=== PATIENT | male | born 1960 | race Caucasian/White ===

== ENCOUNTER 2016-09-16 20:41 | Emergency (ER) | payer BC ==
--- NOTE | 2016-09-16 20:56 | Emergency Department Record ---
History of Present Illness - General Chief Complaint: Back Pain/Injury Stated Complaint: BACK PAIN Time Seen by Provider: 09/16/16 20:52 Source: Patient Mode of Arrival: Ambulatory Limitations: No limitations - History of Present Illness Initial Comments: 56 yo male presents with right lower back pain. The pain started about two days ago at night. The pain has gradually worsened. He has some pain in the right leg. No hematuria. No fever. No trauma. No recent fever or illness. No urinary incontinence. He has had kidney stones prior but this feels different than stones in the past. MD Complaint: Back pain -: Days(s) Place: Home Radiation: Right leg Severity: Moderate Quality: Aching Consistency: Constant Improves With: Immobilization Worsens With: Walking Context: History of kidney stones Associated Symptoms: Denies other symptoms - Related Data Home Medications Medication Instructions Recorded Confirmed Last Taken Clopidogrel Bisulfate [Clopidogrel] 1 tab PO DAILY 11/07/13 09/16/16 1 Day Ago Isosorbide Mononitrate [Imdur] 30 mg PO DAILY 11/07/13 09/16/16 1 Day Ago Metoprolol Succinate [Toprol Xl] 12.5 mg PO DAILY 11/07/13 09/16/16 1 Day Ago Omeprazole 1 tab PO DAILY 11/07/13 09/16/16 1 Day Ago Simvastatin 1 tab PO DAILY 11/07/13 09/16/16 1 Day Ago Fexofenadine HCl 180 mg PO DAILY 01/01/14 09/16/16 1 Day Ago Montelukast Sodium [Singulair] 10 mg PO DAILY 01/01/14 09/16/16 1 Day Ago Multivitamin [Multi-Vitamin Daily] 1 each PO DAILY 01/01/14 09/16/16 1 Day Ago Aspirin 81 mg PO DAILY 05/16/14 09/16/16 1 Day Ago Beclomethasone Dipropionate [Qvar] 2 puff IH DAILY 10/27/15 09/16/16 1 Day Ago Acetaminophen with Codeine 1 tab PO Q6H PRN 09/16/16 09/16/16 Unknown [Acetaminophen-Cod #3 Tablet] Meloxicam [Meloxicam] 7.5 mg PO BID 09/16/16 09/16/16 Unknown Previous Rx's Medication Instructions Recorded Diazepam [Valium] 5 mg PO Q8H #12 tab 09/16/16 Hydrocodone/Acetaminophen [[place] 1 tab PO Q8H PRN #12 tab 09/16/16 5mg/325mg] Allergies Allergy/AdvReac Type Severity Reaction Status Date / Time erythromycin base Allergy Intermediate RASH Unverified 10/29/15 13:10 [ERYTHROMYCIN BASE] Penicillins [PENICILLINS] Allergy Intermediate RASH Unverified 10/29/15 13:10 Review of Systems Constitutional: Denies: Chills, Fever, Weakness Eyes: Denies: Eye discharge, Eye pain, Photophobia ENT: Denies: Congestion, Throat pain Respiratory: Denies: Cough Cardiovascular: Denies: Chest pain, Palpitations, Syncope Endocrine: Denies: Fatigue Gastrointestinal: Denies: Abdominal pain, Diarrhea, Nausea, Vomiting Genitourinary: Reports: Dysuria, Frequency. Denies: Hematuria Musculoskeletal: Reports: Back pain, Neck pain. Denies: Arthralgia Skin: Denies: Bruising, Change in color, Rash Neurological: Denies: Headache, Weakness Psychiatric: Denies: Anxiety Hematological/Lymphatic: Denies: Blood Clots, Easy bleeding, Easy bruising, Swollen glands Past Medical History - SOCIAL HISTORY Smoking Status: Former smoker - RESPIRATORY Hx Respiratory Disorders: Yes Hx Asthma: Yes Hx Bronchitis: Yes Hx Pneumonia: Yes - CARDIOVASCULAR Hx Cardio Disorders: Yes Hx Cardiac Cath: Yes (2010) Hx Chest Pain: Yes Hx Hypertension: Yes Hx Irregular Heartbeat: Yes Comment:: hyperlipidemia - NEURO Hx Neuro Disorders: No Comment:: blurry vision with this episode of CP and before card cath - GI Hx GI Disorders: Yes Hx Reflux: Yes - Hx Genitourinary Disorders: Yes Hx Kidney Stones: Yes Hx Prostate Problems: Yes Comment:: Infection Resolved Apr 2015 - ENDOCRINE Hx Endocrine Disorders: No Hx Diabetes: No Hx Thyroid Disease: No - MUSCULOSKELETAL Hx Musculoskeletal Disorders: Yes Hx Arthritis: Yes Hx Back Injury: Yes - PSYCH Hx Psych Problems: No - HEMATOLOGY/ONCOLOGY Hx Hematology/Oncology Disorders: No Hx Blood Transfusions: No Family Medical History Hx Cancer: Mother Hx Depression: Mother Hx Diabetes: Father, Mother Hx Heart Disease: Father, Mother Physical Exam - General General Appearance: Alert, Oriented x3, Cooperative, No acute distress Limitations: No limitations - Head Head exam: Normal inspection - Eye Eye exam: Normal appearance, PERRL. negative: Conjunctival injection, Periorbital swelling - ENT ENT exam: Normal exam Ear exam: Normal external inspection Nasal Exam: Normal inspection Mouth exam: Normal external inspection Teeth exam: Normal inspection Throat exam: Normal inspection - Neck Neck exam: Normal inspection, Full ROM. negative: Tenderness - Respiratory Respiratory exam: Normal lung sounds bilaterally. negative: Respiratory distress, Rhonchi, Stridor, Wheezes - Cardiovascular Cardiovascular Exam: Regular rate, Normal rhythm, Normal heart sounds - GI/Abdominal GI/Abdominal exam: Soft. negative: Distended, Tenderness - Rectal Rectal exam: Deferred - exam: Deferred - Extremities Extremities exam: Normal inspection, Full ROM, Normal capillary refill. negative: Calf tenderness, Pedal edema, Tenderness - Back Back exam: Reports: Normal inspection, CVA tenderness (R), Full ROM, Muscle spasm, Paraspinal tenderness (left lower), Tenderness. Denies: CVA tenderness ( L), Rash noted, Vertebral tenderness - Neurological Neurological exam: Alert, Normal gait, Oriented X3, Other (negative straight leg raise). negative: Altered, Motor sensory deficit - Psychiatric Psychiatric exam: Normal affect, Normal mood - Skin Skin exam: Dry, Intact, Normal color, Warm Course - Reevaluation(s) Reevaluation #1: The UA is negative He had a CT in 05/07 that was negative for stones This is likely musculoskeletal in nature DC with supportive treatment and recommendation for follow up and reasons to return to the ER 09/16/16 21:32 Disposition Disposition: Discharge Clinical Impression: Lumbar pain Qualifiers: Chronicity: acute Back pain laterality: right Sciatica presence: with sciatica Sciatica laterality: sciatica of right side Qualified Code(s): M54.41 - Lumbago with sciatica, right side Disposition: Home, Self-Care Condition: (1) Good Instructions: Low Back Strain (ED) Additional Instructions: Call your doctor for close follow this week Return if worse, fever, blood in the urine or any concerns Prescriptions: Hydrocodone/Acetaminophen [[place] 5mg/325mg] 1 tab PO Q8H PRN #12 tab PRN Reason: Pain - General Diazepam [Valium] 5 mg PO Q8H #12 tab Forms: Patient Portal Access Time of Disposition: 21:33
[2016-09-16] MEDS ORDERED: HYDROCODONE/APAP 5/325MG TABLET PO ONE (21:04)
[2016-09-16] MEDS ORDERED: DIAZEPAM 5 MG TABLET PO ONE (21:04)
[2016-09-16 21:19] LABS: URINE APPEARANCE CLEAR; URINE BILIRUBIN NEGATIVE (NEGATIVE); URINE BLOOD TRACE-I (NEGATIVE); URINE COLOR YELLOW; URINE GLUCOSE (UA) NEGATIVE (NEGATIVE); URINE KETONE NEGATIVE (NEGATIVE); URINE LEUKOCYTE ESTERASE NEGATIVE (NEGATIVE); URINE NITRITE NEGATIVE (NEGATIVE); URINE PROTEIN NEGATIVE (NEGATIVE); URINE RBC 0 - 2 (NONE SEEN); URINE UROBILINOGEN 0.2 E.U./dL (0.20 - 1.00); URINE WBC 0 - 2 (0-2/hpf)
[2016-09-16 21:20] LABS: URINE BACTERIA NONE SEEN; URINE EPITHELIAL CELLS 0 - 2 (FEW)
== END 2016-09-16 22:22 | disposition home or self-care (01) ==
LOC: ER 20:41
DX: M54.41 Lumbago with sciatica, right side (principal); Z87.442 Personal history of urinary calculi
CPT/HCPCS: 81001; 99283

== ENCOUNTER 2016-09-24 12:53 | Emergency (ER) | payer BC ==
--- NOTE | 2016-09-24 14:28 | Emergency Department Record ---
History of Present Illness - General Chief Complaint: Back Pain/Injury Stated Complaint: LOW BACK PAIN Time Seen by Provider: 09/24/16 13:09 Source: Patient, RN notes reviewed - History of Present Illness Initial Comments: right lower back pain twisting in bed when it started and radiates into her leg.right MD Complaint: Back pain Onset/Timin -: Week(s) Similar Symptoms Previously: Yes Radiation: Left leg, Right leg Severity: Moderate Severity scale (1-10): 8 Quality: Aching Consistency: Constant Improves With: Immobilization Worsens With: Movement, Walking Context: Unknown Associated Symptoms: Denies other symptoms Treatments Prior to Arrival: Prescription analgesics - Related Data Home Medications Medication Instructions Recorded Confirmed Last Taken Clopidogrel Bisulfate [Clopidogrel] 1 tab PO DAILY 11/07/13 09/24/16 09/24/16 Isosorbide Mononitrate [Imdur] 30 mg PO DAILY 11/07/13 09/24/16 09/24/16 Metoprolol Succinate [Toprol Xl] 12.5 mg PO DAILY 11/07/13 09/24/16 09/24/16 Omeprazole 1 tab PO DAILY 11/07/13 09/24/16 09/24/16 Simvastatin 1 tab PO DAILY 11/07/13 09/24/16 09/24/16 Fexofenadine HCl 180 mg PO DAILY 01/01/14 09/24/16 09/24/16 Montelukast Sodium [Singulair] 10 mg PO DAILY 01/01/14 09/24/16 09/24/16 Multivitamin [Multi-Vitamin Daily] 1 each PO DAILY 01/01/14 09/24/16 09/24/16 Aspirin 81 mg PO DAILY 05/16/14 09/24/16 09/24/16 Beclomethasone Dipropionate [Qvar] 2 puff IH DAILY 10/27/15 09/24/16 09/24/16 Acetaminophen with Codeine 1 tab PO Q6H PRN 09/16/16 09/24/16 09/24/16 [Acetaminophen-Cod #3 Tablet] Meloxicam [Meloxicam] 7.5 mg PO BID 09/16/16 09/24/16 09/24/16 Previous Rx's Medication Instructions Recorded Diazepam [Valium] 5 mg PO Q8H #12 tab 09/16/16 Allergies Allergy/AdvReac Type Severity Reaction Status Date / Time erythromycin base Allergy Intermediate RASH Verified 09/24/16 12:56 [ERYTHROMYCIN BASE] Penicillins [PENICILLINS] Allergy Intermediate RASH Verified 09/24/16 12:56 Travel Screening - Travel/Exposure Within Last 30 Days Have you traveled within the last 30 days?: No - Travel/Exposure Within Last Year Have you traveled outside the [place] in the last year?: No - Additonal Travel Details Have you been exposed to anyone with a communicable illness?: No - Travel Symptoms Symptom Screening: None Review of Systems Reviewed: No additional complaints except as noted below Constitutional: Reports: As per HPI. Denies: Chills, Fever, Malaise, Night sweats, Weakness, Weight change Eyes: Reports: As per HPI. Denies: Eye discharge, Eye pain, Photophobia, Vision change ENT: Reports: As per HPI. Denies: Congestion, Dental pain, Ear pain, Epistaxis , Hearing loss, Throat pain Respiratory: Reports: As per HPI. Denies: Cough, Dyspnea, Hemoptysis, Stridor, Wheezes Cardiovascular: Reports: As per HPI. Denies: Arrhythmia, Chest pain, Dyspnea on exertion, Edema, Murmurs, Orthopnea, Palpitations, Paroxysmal nocturnal dyspnea, Rheumatic Fever, Syncope Endocrine: Reports: As per HPI. Denies: Fatigue, Heat or cold intolerance, Polydipsia, Polyuria Gastrointestinal: Reports: As per HPI. Denies: Abdominal pain, Constipation, Diarrhea, Hematemesis, Hematochezia, Melena, Nausea, Vomiting Genitourinary: Reports: As per HPI. Denies: Dysuria, Frequency, Hematuria, Incontinence, Retention, Testicular pain, Testicular mass, Urgency Musculoskeletal: Reports: As per HPI. Denies: Arthralgia, Back pain, Gout, Joint swelling, Myalgia, Neck pain Skin: Reports: As per HPI. Denies: Bruising, Change in color, Change in hair/ nails, Lesions, Pruritus, Rash Neurological: Reports: As per HPI. Denies: Abnormal gait, Confusion, Headache, Numbness, Paresthesias, Seizure, Tingling, Tremors, Vertigo, Weakness Psychiatric: Reports: As per HPI. Denies: Anxiety, Auditory hallucinations, Depression, Homicidal thoughts, Suicidal thoughts, Visual hallucinations Hematological/Lymphatic: Reports: As per HPI. Denies: Anemia, Blood Clots, Easy bleeding, Easy bruising, Swollen glands Past Medical History - SOCIAL HISTORY Smoking Status: Former smoker Alcohol Use: None Drug Use: None - RESPIRATORY Hx Respiratory Disorders: Yes Hx Asthma: Yes Hx Bronchitis: Yes Hx Pneumonia: Yes - CARDIOVASCULAR Hx Cardio Disorders: Yes Hx Cardiac Cath: Yes (2010) Hx Chest Pain: Yes Hx Hypertension: Yes Hx Irregular Heartbeat: Yes Comment:: hyperlipidemia - NEURO Hx Neuro Disorders: No Comment:: blurry vision with this episode of CP and before card cath - GI Hx GI Disorders: Yes Hx Reflux: Yes - Hx Genitourinary Disorders: Yes Hx Kidney Stones: Yes Hx Prostate Problems: Yes Comment:: Infection Resolved Apr 2015 - ENDOCRINE Hx Endocrine Disorders: No Hx Diabetes: No Hx Thyroid Disease: No - MUSCULOSKELETAL Hx Musculoskeletal Disorders: Yes Hx Arthritis: Yes Hx Back Injury: Yes - PSYCH Hx Psych Problems: No - HEMATOLOGY/ONCOLOGY Hx Hematology/Oncology Disorders: No Hx Blood Transfusions: No Family Medical History Any Significant Family History?: Yes Hx Cancer: Mother Hx Depression: Mother Hx Diabetes: Father, Mother Hx Heart Disease: Father, Mother Physical Exam - General General Appearance: Alert, Oriented x3, Cooperative, No acute distress - Head Head exam: Normal inspection - Eye Eye exam: Normal appearance, PERRL Pupils: Normal accommodation - ENT ENT exam: Normal exam, Mucous membranes moist, Normal external ear exam, Normal orophraynx, TM's normal bilaterally Ear exam: Normal external inspection. negative: External canal tenderness Nasal Exam: Normal inspection. negative: Discharge, Sinus tenderness Mouth exam: Normal external inspection, Tongue normal Teeth exam: Normal inspection. negative: Dental caries Throat exam: Normal inspection. negative: Tonsillar erythema, Tonsillar exudate - Neck Neck exam: Normal inspection, Full ROM. negative: Tenderness - Respiratory Respiratory exam: Normal lung sounds bilaterally. negative: Respiratory distress - Cardiovascular Cardiovascular Exam: Regular rate, Normal rhythm, Normal heart sounds - GI/Abdominal GI/Abdominal exam: Soft, Normal bowel sounds. negative: Tenderness - Rectal Rectal exam: Deferred - exam: Deferred - Extremities Extremities exam: Normal inspection, Full ROM, Normal capillary refill. negative: Tenderness - Back Back exam: Reports: Normal inspection, Full ROM, Tenderness (bilateral back pain worse on the right and reproducible with palpation and motion). Denies: Muscle spasm, Rash noted - Neurological Neurological exam: Alert, Normal gait, Oriented X3, Reflexes normal - Psychiatric Psychiatric exam: Normal affect, Normal mood - Skin Skin exam: Dry, Intact, Normal color, Warm Course Vital Signs 09/24/16 12:59 Temperature 98.4 F Pulse Rate 60 Respiratory 18 Rate Blood Pressure 124/88 Pulse Ox 95 Disposition Clinical Impression: Strain of Lumbar Region Lumbar pain Qualifiers: Chronicity: acute Back pain laterality: right Sciatica presence: with sciatica Sciatica laterality: sciatica of right side Qualified Code(s): M54.41 - Lumbago with sciatica, right side Instructions: Low Back Strain (ED) Forms: Patient Portal Access Time of Disposition: 14:30
--- NOTE | 2016-09-24 14:35 | Emergency Department Record ---
History of Present Illness - General Chief Complaint: Back Pain/Injury Stated Complaint: LOW BACK PAIN Time Seen by Provider: 09/24/16 13:09 Source: Patient, RN notes reviewed - History of Present Illness Onset/Timin -: Week(s) Similar Symptoms Previously: Yes Radiation: Left leg, Right leg Severity: Moderate Severity scale (1-10): 8 Quality: Aching Consistency: Constant Improves With: Immobilization Worsens With: Movement, Walking Context: Unknown Associated Symptoms: Denies other symptoms Treatments Prior to Arrival: Prescription analgesics - Related Data Home Medications Medication Instructions Recorded Confirmed Last Taken Clopidogrel Bisulfate [Clopidogrel] 1 tab PO DAILY 11/07/13 09/24/16 09/24/16 Isosorbide Mononitrate [Imdur] 30 mg PO DAILY 11/07/13 09/24/16 09/24/16 Metoprolol Succinate [Toprol Xl] 12.5 mg PO DAILY 11/07/13 09/24/16 09/24/16 Omeprazole 1 tab PO DAILY 11/07/13 09/24/16 09/24/16 Simvastatin 1 tab PO DAILY 11/07/13 09/24/16 09/24/16 Fexofenadine HCl 180 mg PO DAILY 01/01/14 09/24/16 09/24/16 Montelukast Sodium [Singulair] 10 mg PO DAILY 01/01/14 09/24/16 09/24/16 Multivitamin [Multi-Vitamin Daily] 1 each PO DAILY 01/01/14 09/24/16 09/24/16 Aspirin 81 mg PO DAILY 05/16/14 09/24/16 09/24/16 Beclomethasone Dipropionate [Qvar] 2 puff IH DAILY 10/27/15 09/24/16 09/24/16 Acetaminophen with Codeine 1 tab PO Q6H PRN 09/16/16 09/24/16 09/24/16 [Acetaminophen-Cod #3 Tablet] Meloxicam [Meloxicam] 7.5 mg PO BID 09/16/16 09/24/16 09/24/16 Previous Rx's Medication Instructions Recorded Diazepam [Valium] 5 mg PO Q8H #12 tab 09/16/16 Cyclobenzaprine HCl [Flexeril] 10 mg PO TID #30 tablet 09/24/16 Hydrocodone/Acetaminophen [[place] 1 tab PO Q6H PRN #14 tab 09/24/16 5mg/325mg] Naproxen [Naprosyn] 500 mg PO Q12H #30 tab. 09/24/16 Allergies Allergy/AdvReac Type Severity Reaction Status Date / Time erythromycin base Allergy Intermediate RASH Verified 09/24/16 12:56 [ERYTHROMYCIN BASE] Penicillins [PENICILLINS] Allergy Intermediate RASH Verified 09/24/16 12:56 Travel Screening - Travel/Exposure Within Last 30 Days Have you traveled within the last 30 days?: No - Travel/Exposure Within Last Year Have you traveled outside the [place] in the last year?: No - Additonal Travel Details Have you been exposed to anyone with a communicable illness?: No - Travel Symptoms Symptom Screening: None Review of Systems Constitutional: Reports: As per HPI. Denies: Chills, Fever, Malaise, Night sweats, Weakness, Weight change Eyes: Reports: As per HPI. Denies: Eye discharge, Eye pain, Photophobia, Vision change ENT: Reports: As per HPI. Denies: Congestion, Dental pain, Ear pain, Epistaxis , Hearing loss, Throat pain Respiratory: Reports: As per HPI. Denies: Cough, Dyspnea, Hemoptysis, Stridor, Wheezes Cardiovascular: Reports: As per HPI. Denies: Arrhythmia, Chest pain, Dyspnea on exertion, Edema, Murmurs, Orthopnea, Palpitations, Paroxysmal nocturnal dyspnea, Rheumatic Fever, Syncope Endocrine: Reports: As per HPI. Denies: Fatigue, Heat or cold intolerance, Polydipsia, Polyuria Gastrointestinal: Reports: As per HPI. Denies: Abdominal pain, Constipation, Diarrhea, Hematemesis, Hematochezia, Melena, Nausea, Vomiting Genitourinary: Reports: As per HPI. Denies: Dysuria, Frequency, Hematuria, Incontinence, Retention, Testicular pain, Testicular mass, Urgency Musculoskeletal: Reports: As per HPI. Denies: Arthralgia, Back pain, Gout, Joint swelling, Myalgia, Neck pain Skin: Reports: As per HPI. Denies: Bruising, Change in color, Change in hair/ nails, Lesions, Pruritus, Rash Neurological: Reports: As per HPI. Denies: Abnormal gait, Confusion, Headache, Numbness, Paresthesias, Seizure, Tingling, Tremors, Vertigo, Weakness Psychiatric: Reports: As per HPI. Denies: Anxiety, Auditory hallucinations, Depression, Homicidal thoughts, Suicidal thoughts, Visual hallucinations Hematological/Lymphatic: Reports: As per HPI. Denies: Anemia, Blood Clots, Easy bleeding, Easy bruising, Swollen glands Past Medical History - SOCIAL HISTORY Smoking Status: Former smoker Alcohol Use: None Drug Use: None - RESPIRATORY Hx Respiratory Disorders: Yes Hx Asthma: Yes Hx Bronchitis: Yes Hx Pneumonia: Yes - CARDIOVASCULAR Hx Cardio Disorders: Yes Hx Cardiac Cath: Yes (2010) Hx Chest Pain: Yes Hx Hypertension: Yes Hx Irregular Heartbeat: Yes Comment:: hyperlipidemia - NEURO Hx Neuro Disorders: No Comment:: blurry vision with this episode of CP and before card cath - GI Hx GI Disorders: Yes Hx Reflux: Yes - Hx Genitourinary Disorders: Yes Hx Kidney Stones: Yes Hx Prostate Problems: Yes Comment:: Infection Resolved Apr 2015 - ENDOCRINE Hx Endocrine Disorders: No Hx Diabetes: No Hx Thyroid Disease: No - MUSCULOSKELETAL Hx Musculoskeletal Disorders: Yes Hx Arthritis: Yes Hx Back Injury: Yes - PSYCH Hx Psych Problems: No - HEMATOLOGY/ONCOLOGY Hx Hematology/Oncology Disorders: No Hx Blood Transfusions: No Family Medical History Any Significant Family History?: Yes Hx Cancer: Mother Hx Depression: Mother Hx Diabetes: Father, Mother Hx Heart Disease: Father, Mother Course Vital Signs 09/24/16 12:59 Temperature 98.4 F Pulse Rate 60 Respiratory 18 Rate Blood Pressure 124/88 Pulse Ox 95 Disposition Clinical Impression: Strain of lumbar spine Lumbar pain Qualifiers: Chronicity: acute Back pain laterality: right Sciatica presence: with sciatica Sciatica laterality: sciatica of right side Qualified Code(s): M54.41 - Lumbago with sciatica, right side Disposition: Home, Self-Care Instructions: Low Back Strain (ED) Prescriptions: Cyclobenzaprine HCl [Flexeril] 10 mg PO TID #30 tablet Naproxen [Naprosyn] 500 mg PO Q12H #30 tab. Hydrocodone/Acetaminophen [[place] 5mg/325mg] 1 tab PO Q6H PRN #14 tab PRN Reason: Pain - General Forms: Patient Portal Access Time of Disposition: 14:35
[2016-09-24] MEDS: KETOROLAC 60 MG/2 ML VIAL IM STA (14:42)
== END 2016-09-24 15:12 | disposition home or self-care (01) ==
LOC: ER 12:53
DX: S39.012A Strain of muscle, fascia and tendon of lower back, initial encounter (principal); M54.41 Lumbago with sciatica, right side; X50.1XXA Overexertion from prolonged static or awkward postures, initial encounter
CPT/HCPCS: 96372; 99283; J1885

== ENCOUNTER 2016-10-05 11:59 | Emergency (ER) | payer BC ==
[2016-10-05] MEDS ORDERED: 0.9 % SODIUM CHLORIDE 1000ML 1,000 ML IV SCH (12:30)
--- NOTE | 2016-10-05 12:32 | Emergency Department Record ---
History of Present Illness - General Chief Complaint: Dizziness Stated Complaint: LIGHT HEADED/NOT FEELING GOOD Time Seen by Provider: 10/05/16 12:13 Source: Patient Mode of Arrival: Ambulatory Limitations: No limitations - History of Present Illness Initial Comments: 56 yo male presents to ED with a CC of feeling lightheaded and dizzy, reports feeling very fatigued as well. Patient denies fevers, chills, cough, or recent illness. Patient does report feeling "all swelled up" since his neck surgery 1.5 years ago, believes today's symptoms are related to his "swelling". Patient denies any focal weakness or pain symptoms. MD Complaint: Dizziness, Lightheadedness Onset/Timin -: Hour(s) Timing: Awoke with symptoms Description: Lightheadedness History of Same: No Severity: Moderate Worsens With: Other Associated Symptoms: Cough - [place] Coma Scale Eye Response: (4) Open spontaneously Motor Response: (6) Obeys commands Verbal Response: (5) Oriented [place] Total: 15 - Related Data Home Medications Medication Instructions Recorded Confirmed Last Taken Clopidogrel Bisulfate [Clopidogrel] 1 tab PO DAILY 11/07/13 10/05/16 10/04/16 Isosorbide Mononitrate [Imdur] 30 mg PO DAILY 11/07/13 10/05/16 10/04/16 Metoprolol Succinate [Toprol Xl] 12.5 mg PO DAILY 11/07/13 10/05/16 10/04/16 Omeprazole 1 tab PO DAILY 11/07/13 10/05/16 10/04/16 Simvastatin 1 tab PO DAILY 11/07/13 10/05/16 10/04/16 Fexofenadine HCl 180 mg PO DAILY 01/01/14 10/05/16 10/04/16 Montelukast Sodium [Singulair] 10 mg PO DAILY 01/01/14 10/05/16 10/04/16 Multivitamin [Multi-Vitamin Daily] 1 each PO DAILY 01/01/14 10/05/16 10/04/16 Aspirin 81 mg PO DAILY 05/16/14 10/05/16 10/04/16 Beclomethasone Dipropionate [Qvar] 2 puff IH DAILY 10/27/15 10/05/16 10/04/16 Acetaminophen with Codeine 1 tab PO Q6H PRN 09/16/16 10/05/16 10/04/16 [Acetaminophen-Cod #3 Tablet] Meloxicam [Meloxicam] 7.5 mg PO BID 09/16/16 10/05/16 10/04/16 Previous Rx's Medication Instructions Recorded Diazepam [Valium] 5 mg PO Q8H #12 tab 09/16/16 Cyclobenzaprine HCl [Flexeril] 10 mg PO TID #30 tablet 09/24/16 Hydrocodone/Acetaminophen [Viola 1 tab PO Q6H PRN #14 tab 09/24/16 5mg/325mg] Naproxen [Naprosyn] 500 mg PO Q12H #30 tab. 09/24/16 Allergies Allergy/AdvReac Type Severity Reaction Status Date / Time erythromycin base Allergy Intermediate RASH Verified 10/05/16 12:10 [ERYTHROMYCIN BASE] Penicillins [PENICILLINS] Allergy Intermediate RASH Verified 10/05/16 12:10 Travel Screening - Travel/Exposure Within Last 30 Days Have you traveled within the last 30 days?: No - Travel/Exposure Within Last Year Have you traveled outside the [place] in the last year?: No - Additonal Travel Details Have you been exposed to anyone with a communicable illness?: No - Travel Symptoms Symptom Screening: None Review of Systems Constitutional: Denies: Chills, Fever, Malaise, Night sweats Eyes: Denies: Eye discharge, Eye pain ENT: Denies: Congestion, Ear pain Respiratory: Denies: Cough, Dyspnea Cardiovascular: Denies: Chest pain, Dyspnea on exertion Endocrine: Reports: Fatigue. Denies: Heat or cold intolerance Gastrointestinal: Denies: Abdominal pain, Nausea, Vomiting Genitourinary: Denies: Hematuria, Incontinence, Retention, Testicular pain Musculoskeletal: Denies: Arthralgia, Back pain, Gout, Joint swelling Skin: Denies: Bruising, Change in color Neurological: Denies: Abnormal gait, Confusion, Headache, Seizure Psychiatric: Denies: Anxiety Hematological/Lymphatic: Denies: Anemia, Blood Clots Past Medical History - SOCIAL HISTORY Smoking Status: Former smoker Alcohol Use: None Drug Use: None - RESPIRATORY Hx Respiratory Disorders: Yes Hx Asthma: Yes Hx Bronchitis: Yes Hx Pneumonia: Yes - CARDIOVASCULAR Hx Cardio Disorders: Yes Hx Cardiac Cath: Yes (2010) Hx Chest Pain: Yes Hx Hypertension: Yes Hx Irregular Heartbeat: Yes Comment:: hyperlipidemia - NEURO Hx Neuro Disorders: No Comment:: blurry vision with this episode of CP and before card cath - GI Hx GI Disorders: Yes Hx Reflux: Yes - Hx Genitourinary Disorders: Yes Hx Kidney Stones: Yes Hx Prostate Problems: Yes Comment:: Infection Resolved Apr 2015 - ENDOCRINE Hx Endocrine Disorders: No Hx Diabetes: No Hx Thyroid Disease: No - MUSCULOSKELETAL Hx Musculoskeletal Disorders: Yes Hx Arthritis: Yes Hx Back Injury: Yes - PSYCH Hx Psych Problems: No - HEMATOLOGY/ONCOLOGY Hx Hematology/Oncology Disorders: No Hx Blood Transfusions: No Family Medical History Any Significant Family History?: Yes Hx Cancer: Mother Hx Depression: Mother Hx Diabetes: Father, Mother Hx Heart Disease: Father, Mother Physical Exam - General General Appearance: Alert, Oriented x3, Cooperative, No acute distress Limitations: No limitations - Head Head exam: Atraumatic, Normocephalic, Normal inspection Head exam detail: negative: Abrasion, Contusion, Dc's sign, General tenderness, Hematoma, Laceration - Eye Eye exam: Normal appearance. negative: Conjunctival injection, Periorbital swelling, Periorbital tenderness, Scleral icterus - ENT Ear exam: negative: Auricular hematoma, Auricular trauma Nasal Exam: negative: Active bleeding, Discharge, Dried blood, Foreign body Mouth exam: negative: Drooling, Laceration, Muffled voice, Tongue elevation - Neck Neck exam: Normal inspection. negative: Meningismus, Tenderness - Respiratory Respiratory exam: Normal lung sounds bilaterally. negative: Rales, Respiratory distress, Rhonchi, Stridor - Cardiovascular Cardiovascular Exam: Regular rate, Normal rhythm, Normal heart sounds - GI/Abdominal GI/Abdominal exam: Soft. negative: Rebound, Rigid, Tenderness - Rectal Rectal exam: Deferred - exam: Deferred - Extremities Extremities exam: Normal inspection. negative: Calf tenderness, Pedal edema, Tenderness - Back Back exam: Denies: CVA tenderness (R), CVA tenderness (L) - Neurological Neurological exam: Alert, Normal gait, Oriented X3 - Psychiatric Psychiatric exam: Normal affect, Normal mood - Skin Skin exam: Normal color. negative: Abrasion Type of lesion: negative: abrasion Course Vital Signs 10/05/16 12:13 Temperature 97.6 F Pulse Rate 67 Respiratory 20 Rate Blood Pressure 143/91 Pulse Ox 94 L - Reevaluation(s) Reevaluation #1: 10/05/16 12:29 EKG: NSR 59 Normal axis Normal intervals No acute ST-T wave changes Reevaluation #2: 10/05/16 13:24 Labs reviewed and are grossly unremarkable for an acute process. Patient was updated on all results, has ambulated to the bathroom with steady gait, is well appearing, and stable for discharge at this time. Medical Decision Making - Lab Data Result diagrams: 10/05/16 13:06 10/05/16 13:06 Disposition Disposition: Discharge Clinical Impression: Fatigue Qualifiers: Fatigue type: unspecified Qualified Code(s): R53.83 - Other fatigue Disposition: Home, Self-Care Condition: (2) Stable Instructions: Dizziness (ED) Additional Instructions: Return to ED if your symptoms worsen or if you have any concerns. Follow-up with your family doctor in 3-5 days as directed. Forms: Patient Portal Access Time of Disposition: 13:24
[2016-10-05 13:11] LABS: GRAN % 59.5 % (47-80); HEMOGLOBIN 15.1 gm/dl (14.0-18.0); LYMPH % 25.1 % (16-45); MEAN CELL VOLUME 91.3 fl (81-97); MEAN CORPUSCULAR HEMOGLOBIN 30.6 pg (27-33); MEAN CORPUSCULAR HGB CONC 33.6 g/dl (32-36); MEAN PLATELET VOLUME 9.4 fl (7.4-10.4); MONO % 10.4 % (0-9); PLATELET COUNT 285 K/uL (130-400); RED BLOOD COUNT 4.93 M/uL (4.40-5.70); RED CELL DISTRIBUTION WIDTH 13.1 % (11.5-14.5); WHITE BLOOD COUNT W/O DIFF 7.2 K/uL (4.2-12.2)
[2016-10-05 13:22] LABS: ALB/GLOB RATIO 1.6 (1.1-1.8); ALBUMIN 4.4 gm/dL (3.5-5.0); ALKALINE PHOSPHATASE 71 U/L (38-126); ALT/SGPT 47 U/L (21-72); ANION GAP 9.7 (7-16); AST/SGOT 34 U/L (17-59); BILIRUBIN,TOTAL 0.93 mg/dL (0.2-1.3); BLOOD UREA NITROGEN 16 mg/dL (9-20); CARBON DIOXIDE 26.3 mmol/L (22-30); CREATININE 0.9 mg/dL (0.66-1.25); EST GLOMERULAR FILTRATION RATE > 60 ml/min; GLUCOSE,RANDOM 92 mg/dL (70-110); TOTAL PROTEIN 7.2 gm/dL (6.3-8.2)
[2016-10-05 13:23] LABS: INFLUENZA A NEGATIVE (NEGATIVE); INFLUENZA B NEGATIVE (NEGATIVE)
== END 2016-10-05 13:37 | disposition home or self-care (01) ==
LOC: ER 11:59
DX: R53.83 Other fatigue (principal); R42 Dizziness and giddiness; R05 Cough; I10 Essential (primary) hypertension; F17.210 Nicotine dependence, cigarettes, uncomplicated
CPT/HCPCS: 80053; 85025; 87400; 93005; 93010; 99284

== ENCOUNTER 2016-12-02 08:32 | Emergency (ER) | payer BC ==
[2016-12-02] MEDS ORDERED: ONDANSETRON 4 MG ODT TABLET SL ONE (08:55)
--- NOTE | 2016-12-02 09:03 | Emergency Department Record ---
History of Present Illness - General Chief Complaint: Abdominal Pain Stated Complaint: ABD PAIN Time Seen by Provider: 12/02/16 08:44 Source: Patient Mode of Arrival: Ambulatory Limitations: No limitations - History of Present Illness Initial Comments: The patient is here due to a one hour hx of abdominal cramping, bloating, and nausea. The cramping is mainly in the lower abdomen. The onset was fairly sudden. He has had no vomiting or diarrhea but feels that he might at any time. He also is complaining of swelling all over his body for many months. The patient has had these similar issues in the past which he attributes to having metal placed in his neck for spine surgery and now he feels he is allergic to it. He usually in the past has developed vomiting and diarrhea which does relieve his symptoms but today he came in right when it started. The patient denies any dysuria, fever, chills, CP, SOB or LIBORIO. He recently was in the [facility] for a ST and received a Zpak. The patient denies any hx of intraabdominal surgeries. MD Complaint: Abdominal pain Onset/Timin -: Hour(s) Location: Diffuse Radiation: Back Migration to: No migration Severity: Moderate Quality: Aching, Cramping Consistency: Constant Improves With: Nothing Worsens With: Nothing Associated Symptoms: Nausea - Related Data Home Medications Medication Instructions Recorded Confirmed Last Taken Clopidogrel Bisulfate [Clopidogrel] 1 tab PO DAILY 11/07/13 12/02/16 10/04/16 Isosorbide Mononitrate [Imdur] 30 mg PO DAILY 11/07/13 12/02/16 10/04/16 Metoprolol Succinate [Toprol Xl] 12.5 mg PO DAILY 11/07/13 12/02/16 10/04/16 Omeprazole 1 tab PO DAILY 11/07/13 12/02/16 10/04/16 Simvastatin 1 tab PO DAILY 11/07/13 12/02/16 10/04/16 Fexofenadine HCl 180 mg PO DAILY 01/01/14 12/02/16 10/04/16 Montelukast Sodium [Singulair] 10 mg PO DAILY 01/01/14 12/02/16 10/04/16 Multivitamin [Multi-Vitamin Daily] 1 each PO DAILY 01/01/14 12/02/16 10/04/16 Aspirin 81 mg PO DAILY 05/16/14 12/02/16 10/04/16 Beclomethasone Dipropionate [Qvar] 2 puff IH DAILY 10/27/15 12/02/16 10/04/16 Acetaminophen with Codeine 1 tab PO Q6H PRN 09/16/16 12/02/16 10/04/16 [Acetaminophen-Cod #3 Tablet] Allergies Allergy/AdvReac Type Severity Reaction Status Date / Time erythromycin base Allergy Intermediate RASH Unverified 11/14/16 11:55 [ERYTHROMYCIN BASE] Penicillins [PENICILLINS] Allergy Intermediate RASH Unverified 11/14/16 11:55 Travel Screening - Travel/Exposure Within Last 30 Days Have you traveled within the last 30 days?: No Review of Systems Constitutional: Denies: Chills, Fever Eyes: Denies: Eye discharge ENT: Denies: Congestion Respiratory: Denies: Cough, Dyspnea Cardiovascular: Denies: Arrhythmia, Chest pain Past Medical History - SOCIAL HISTORY Smoking Status: Former smoker Alcohol Use: None Drug Use: None - RESPIRATORY Hx Respiratory Disorders: Yes Hx Asthma: Yes Hx Bronchitis: Yes Hx Pneumonia: Yes - CARDIOVASCULAR Hx Cardio Disorders: Yes Hx Cardiac Cath: Yes (2010) Hx Chest Pain: Yes Hx Hypertension: Yes Hx Irregular Heartbeat: Yes Comment:: hyperlipidemia - NEURO Hx Neuro Disorders: No Comment:: blurry vision with this episode of CP and before card cath - GI Hx GI Disorders: Yes Hx Reflux: Yes - Hx Genitourinary Disorders: Yes Hx Kidney Stones: Yes Hx Prostate Problems: Yes Comment:: Infection Resolved Apr 2015 - ENDOCRINE Hx Endocrine Disorders: No Hx Diabetes: No Hx Thyroid Disease: No - MUSCULOSKELETAL Hx Musculoskeletal Disorders: Yes Hx Arthritis: Yes Hx Back Injury: Yes - PSYCH Hx Psych Problems: No - HEMATOLOGY/ONCOLOGY Hx Hematology/Oncology Disorders: No Hx Blood Transfusions: No Family Medical History Any Significant Family History?: Yes Hx Cancer: Mother Hx Depression: Mother Hx Diabetes: Father, Mother Hx Heart Disease: Father, Mother Physical Exam - General General Appearance: Alert, Oriented x3, Cooperative, No acute distress - Head Head exam: Atraumatic, Normocephalic, Normal inspection - Eye Eye exam: Normal appearance, PERRL - Neck Neck exam: Normal inspection, Full ROM. negative: Tenderness - Respiratory Respiratory exam: Normal lung sounds bilaterally. negative: Respiratory distress - Cardiovascular Cardiovascular Exam: Regular rate, Normal rhythm, Normal heart sounds - GI/Abdominal GI/Abdominal exam: Soft, Normal bowel sounds. negative: Guarding, Rebound, Rigid, Tenderness - exam: Normal inspection - Extremities Extremities exam: Normal inspection, Full ROM, Normal capillary refill. negative: Calf tenderness, Pedal edema, Tenderness - Neurological Neurological exam: Alert, Normal gait, Oriented X3. negative: Abnormal gait, Altered, Motor sensory deficit - Psychiatric Psychiatric exam: Anxious Course Vital Signs 12/02/16 08:33 Temperature 97.5 F L Pulse Rate 86 Respiratory 20 Rate Blood Pressure 135/108 Pulse Ox 97 - Reevaluation(s) Reevaluation #1: The patient is doing better. He denies any nausea and states his cramping is improved but still minimally present. We will give the patient a Toradol shot which has worked well in the past per the patient. 12/02/16 09:50 Reevaluation #2: The patient is doing better at this time. He denies any CP, SOB, or significant pain or bloating at this time. On exam his abdomen is very soft and nontender in all 4 quads. He is still feeling mild discomfort but has had no vomiting or diarrhea here in the ER. I did explain to him the need to use the Zofran for nausea and to F/U with his PCP for recheck later this week. 12/02/16 10:17 Medical Decision Making - Data Complexity MDM Data: Labs Ordered and/or Reviewed - Lab Data Result diagrams: 12/02/16 09:03 12/02/16 09:03 Disposition Disposition: Discharge Clinical Impression: Abdominal cramping Disposition: Home, Self-Care Condition: (1) Good Instructions: Abdominal Pain (ED) Additional Instructions: Please only take in clear liquids for 6 hours then slowly advance your diet. Use the Zofran as needed. Please see your PCP later this week for recheck and return to the ER in 8-10 hours for recheck if not better at which time we may possibly order a CT of your abdomen. Forms: Patient Portal Access Time of Disposition: 10:21
[2016-12-02 09:16] LABS: BASO % 0.8 % (0-6); EOS % 4.7 % (0-6); GRAN % 59.5 % (47-80); HEMATOCRIT 46.4 % (42.0-52.0); HEMOGLOBIN 15.4 gm/dl (14.0-18.0); LYMPH % 28.2 % (16-45); MEAN CELL VOLUME 91.2 fl (81-97); MEAN CORPUSCULAR HEMOGLOBIN 30.3 pg (27-33); MEAN CORPUSCULAR HGB CONC 33.2 g/dl (32-36); MEAN PLATELET VOLUME 9.7 fl (7.4-10.4); MONO % 6.8 % (0-9); PLATELET COUNT 293 K/uL (130-400); RED BLOOD COUNT 5.09 M/uL (4.40-5.70); RED CELL DISTRIBUTION WIDTH 12.7 % (11.5-14.5); WHITE BLOOD COUNT W/O DIFF 8.7 K/uL (4.2-12.2)
[2016-12-02 09:29] LABS: ALBUMIN 4.7 gm/dL (3.5-5.0); ALKALINE PHOSPHATASE 81 U/L (38-126); ALT/SGPT 38 U/L (21-72); AST/SGOT 26 U/L (17-59); BILIRUBIN,TOTAL 0.75 mg/dL (0.2-1.3); BLOOD UREA NITROGEN 14 mg/dL (9-20); EST GLOMERULAR FILTRATION RATE > 60 ml/min; GLUCOSE,RANDOM 123 mg/dL (70-110); LIPASE 95 U/L (23-300); TOTAL PROTEIN 7.8 gm/dL (6.3-8.2)
[2016-12-02 09:32] LABS: URINE APPEARANCE CLEAR; URINE BILIRUBIN NEGATIVE (NEGATIVE); URINE BLOOD NEGATIVE (NEGATIVE); URINE COLOR YELLOW; URINE GLUCOSE (UA) NEGATIVE (NEGATIVE); URINE KETONE NEGATIVE (NEGATIVE); URINE LEUKOCYTE ESTERASE NEGATIVE (NEGATIVE); URINE NITRITE NEGATIVE (NEGATIVE); URINE PROTEIN NEGATIVE (NEGATIVE); URINE UROBILINOGEN 0.2 E.U./dL (0.20 - 1.00)
[2016-12-02] MEDS ORDERED: KETOROLAC 30 MG/ML VIAL IM ONE (09:48)
[2016-12-02] MEDS ORDERED: ONDANSETRON 4 MG ODT TABLET SL PRN (10:21)
== END 2016-12-02 10:37 | disposition home or self-care (01) ==
LOC: ER 08:32
DX: R10.30 Lower abdominal pain, unspecified (principal); R11.0 Nausea; I10 Essential (primary) hypertension; Z87.891 Personal history of nicotine dependence
CPT/HCPCS: 80048; 80076; 81003; 83690; 85025; 96372; 99283; 99284; J1885

== ENCOUNTER 2017-08-04 18:34 | Observation (INO) | payer BC ==
--- NOTE | 2017-08-04 18:50 | Emergency Department Record ---
History of Present Illness - General Chief Complaint: Chest Pain Stated Complaint: CHEST PAIN,LIBORIO Time Seen by Provider: 08/04/17 18:49 Source: Patient Mode of Arrival: Ambulatory Limitations: No limitations - History of Present Illness Initial Comments: 57 yo male presents to ED for evaluation of chest discomfort, fatigue, and mild shortness of breath today. Patient reports similar symptoms prior to having stent placement, denies fever, chills, or recent illness. Patient reports a history of asthma as well, denies wheezing or cough symptoms. Patient was seeing Dr. Marie who retired, has not seen a epic ambulatory analysts in some time. MD Complaint: Chest pain Onset/Timin -: Hour(s) Pain Location: Substernal Pain Radiation: None Severity: Moderate Quality: Aching Consistency: Constant Improves With: Nothing Worsens With: Nothing Anginal Symptoms: Dyspnea, Nausea - Related Data Allergies Allergy/AdvReac Type Severity Reaction Status Date / Time erythromycin base Allergy Intermediate RASH Verified 08/04/17 19:20 [ERYTHROMYCIN BASE] Penicillins [PENICILLINS] Allergy Intermediate RASH Verified 08/04/17 19:20 Travel Screening - Travel/Exposure Within Last 30 Days Have you traveled within the last 30 days?: No - Travel/Exposure Within Last Year Have you traveled outside the [place] in the last year?: No - Additonal Travel Details Have you been exposed to anyone with a communicable illness?: No - Travel Symptoms Symptom Screening: None Review of Systems Constitutional: Reports: Malaise. Denies: Chills, Fever, Night sweats Eyes: Denies: Eye discharge, Eye pain ENT: Denies: Congestion, Ear pain, Epistaxis Respiratory: Reports: Dyspnea. Denies: Cough Cardiovascular: Reports: Chest pain. Denies: Dyspnea on exertion, Edema Endocrine: Denies: Fatigue, Heat or cold intolerance Gastrointestinal: Denies: Abdominal pain, Nausea, Vomiting Genitourinary: Denies: Incontinence, Retention Musculoskeletal: Denies: Arthralgia, Back pain, Gout, Joint swelling Skin: Denies: Bruising, Change in color Neurological: Denies: Abnormal gait, Confusion, Headache, Tingling Psychiatric: Denies: Anxiety Hematological/Lymphatic: Denies: Anemia, Blood Clots Past Medical History - SOCIAL HISTORY Smoking Status: Former smoker Alcohol Use: None Drug Use: None - RESPIRATORY Hx Respiratory Disorders: Yes Hx Asthma: Yes Hx Bronchitis: Yes Hx Pneumonia: Yes - CARDIOVASCULAR Hx Cardio Disorders: Yes Hx Cardiac Cath: Yes (2010) Hx Chest Pain: Yes Hx Hypertension: Yes Hx Irregular Heartbeat: Yes Comment:: hyperlipidemia, 1 stent placement. - NEURO Hx Neuro Disorders: No Comment:: blurry vision with this episode of CP and before card cath - GI Hx GI Disorders: Yes Hx Reflux: Yes - Hx Genitourinary Disorders: Yes Hx Kidney Stones: Yes Hx Prostate Problems: Yes Comment:: Infection Resolved Apr 2015 - ENDOCRINE Hx Endocrine Disorders: No Hx Diabetes: No Hx Thyroid Disease: No - MUSCULOSKELETAL Hx Musculoskeletal Disorders: Yes Hx Arthritis: Yes Hx Back Injury: Yes - PSYCH Hx Psych Problems: No - HEMATOLOGY/ONCOLOGY Hx Hematology/Oncology Disorders: No Hx Blood Transfusions: No Family Medical History Any Significant Family History?: No Hx Cancer: Mother Hx Depression: Mother Hx Diabetes: Father, Mother Hx Heart Disease: Father, Mother Physical Exam - General General Appearance: Alert, Oriented x3, Cooperative, Mild distress Limitations: No limitations - Head Head exam: Atraumatic, Normocephalic, Normal inspection Head exam detail: negative: Abrasion, Contusion, Dc's sign, General tenderness, Hematoma, Laceration - Eye Eye exam: Normal appearance. negative: Conjunctival injection, Periorbital swelling, Periorbital tenderness, Scleral icterus - ENT Ear exam: negative: Auricular hematoma, Auricular trauma Nasal Exam: negative: Active bleeding, Discharge, Dried blood, Foreign body Mouth exam: negative: Drooling, Laceration, Muffled voice, Tongue elevation - Neck Neck exam: Normal inspection. negative: Meningismus, Tenderness - Respiratory Respiratory exam: Normal lung sounds bilaterally. negative: Respiratory distress, Rhonchi, Stridor, Wheezes - Cardiovascular Cardiovascular Exam: Regular rate, Normal rhythm, Normal heart sounds - GI/Abdominal GI/Abdominal exam: Soft. negative: Distended, Rebound, Rigid, Tenderness - Rectal Rectal exam: Deferred - exam: Deferred - Extremities Extremities exam: Normal inspection. negative: Pedal edema, Tenderness - Back Back exam: Denies: CVA tenderness (R), CVA tenderness (L) - Neurological Neurological exam: Alert, Normal gait, Oriented X3 - Psychiatric Psychiatric exam: Normal affect, Normal mood - Skin Skin exam: Normal color. negative: Abrasion Type of lesion: negative: abrasion Course Vital Signs 08/04/17 18:47 Temperature 98.1 F Pulse Rate [ 58 L Pulse Ox Probe] Respiratory 18 Rate Blood Pressure 136/94 [Left Arm] Pulse Ox 96 - Reevaluation(s) Reevaluation #1: 08/04/17 18:49 EKG: NSR 63 Indeterminate axis, normal intervals No acute ST-T wave changes present Reevaluation #2: 08/04/17 19:35 Labs reviewed and are grossly unremarkable for an acute process. CXR: No acute process Reevaluation #3: 08/04/17 19:39 Patient and his family were updated on all results, will admit for further cardiac evaluation in the morning. Medical Decision Making - Lab Data Result diagrams: 08/04/17 18:55 08/04/17 18:55 Disposition Disposition: Admit Clinical Impression: Chest pain Qualifiers: Chest pain type: unspecified Qualified Code(s): R07.9 - Chest pain, unspecified Decision to Admit: Admit from ER Decision to Admit Date: 08/04/17 Decision to Admit Time: 19:40 Forms: Patient Portal Access Quality - Quality Measures Quality Measures: N/A - Blood Pressure Screening Does Patient Have Any of the Following: Active Dx of HTN Blood Pressure Classification: Hypertensive Reading Systolic Measurement: 136 Diastolic Measurement: 94 Screening for High Blood Pressure: Patient Exclusion, Hx of HTN [[id number]]
[2017-08-04] MEDS ORDERED: ASPIRIN 81 MG CHEWABLE TABLET PO ONE (18:55)
[2017-08-04 19:05] LABS: BASO % 0.6 % (0-6); EOS % 4.2 % (0-6); GRAN % 62.3 % (47-80); HEMATOCRIT 45.5 % (42.0-52.0); HEMOGLOBIN 15.2 gm/dl (14.0-18.0); LYMPH % 24.5 % (16-45); MEAN CELL VOLUME 91.4 fl (81-97); MEAN CORPUSCULAR HEMOGLOBIN 30.5 pg (27-33); MEAN CORPUSCULAR HGB CONC 33.4 g/dl (32-36); MEAN PLATELET VOLUME 9.6 fl (7.4-10.4); MONO % 8.4 % (0-9); PLATELET COUNT 331 K/uL (130-400); RED BLOOD COUNT 4.98 M/uL (4.40-5.70); RED CELL DISTRIBUTION WIDTH 13.7 % (11.5-14.5); WHITE BLOOD COUNT W/O DIFF 9.6 K/uL (4.2-12.2)
[2017-08-04 19:19] LABS: BLOOD UREA NITROGEN 17 mg/dL (6-20); CREATININE 0.8 mg/dL (0.7-1.2); EST GLOMERULAR FILTRATION RATE > 60 mL/min
[2017-08-04 19:20] LABS: TOTAL PROTEIN 7.2 g/dL (6.6-8.7)
[2017-08-04 19:22] LABS: GLUCOSE,RANDOM 102 mg/dL (74-109)
[2017-08-04 19:24] LABS: ALB/GLOB RATIO 1.7 (1.1-1.8); ALBUMIN 4.5 g/dL (4.0-5.0); ALKALINE PHOSPHATASE 80 U/L (40-129); ALT/SGPT 37 U/L (<41); AST/SGOT 25 U/L (10.0-50.0)
[2017-08-04 19:25] LABS: CREATINE PHOSPHOKINASE 98 U/L (39-308)
[2017-08-04 19:28] LABS: CKMB 1.9 ng/mL (<6.73)
[2017-08-04] MEDS ORDERED: ACETAMINOPHEN W/ CODEINE 300MG/30MG TABLET PO PRN (20:34)
[2017-08-04] MEDS ORDERED: NITROGLYCERIN 0.4MG SL TABLET #25 BTL SL PRN (20:34)
[2017-08-04] MEDS ORDERED: 0.9 % SODIUM CHLORIDE 1000ML 1,000 ML IV PRN (20:34)
[2017-08-04] MEDS: ALBUTEROL HFA 8 GM INHALER INH SCH (22:06)
[2017-08-04] MEDS: MELOXICAM 7.5 MG TABLET PO SCH (22:37)
[2017-08-05] MEDS ORDERED: PANTOPRAZOLE SODIUM 40 MG TABLET PO SCH (07:00)
--- NOTE | 2017-08-05 07:26 | RADIOLOGY REPORT ---
EXAM: CHEST, TWO VIEWS HISTORY: DIFFICULTY BREATHING, WEAKNESS. TECHNIQUE: Frontal and lateral views of the chest were performed. FINDINGS: The heart size is normal. No pulmonary vascular congestion. No infiltrate or pleural effusion. The osseous structures are normal. IMPRESSION: HYPERINFLATED LUNGS. NO ACUTE PROCESS. JOB NUMBER: [id number] MTDD
[2017-08-05] MEDS: MELOXICAM 7.5 MG TABLET PO SCH (09:59)
[2017-08-05] MEDS ORDERED: ASPIRIN 325 MG TABLET PO SCH (10:00)
[2017-08-05] MEDS ORDERED: MONTELUKAST SODIUM 10MG TABLET PO SCH (10:00)
[2017-08-05] MEDS ORDERED: SIMVASTATIN 20 MG TABLET PO SCH (10:00)
[2017-08-05] MEDS ORDERED: LORATADINE 10 MG TABLET PO SCH (10:00)
[2017-08-05] MEDS ORDERED: ARNUITY (FLUTICASONE FUROATE) 100MCG INH INH SCH (10:00)
[2017-08-05] MEDS ORDERED: ISOSORBIDE MONONITRATE 30 MG TAB.ER.24H PO SCH (10:00)
[2017-08-05] MEDS ORDERED: METOPROLOL SUCC 25 MG TAB.ER PO SCH (10:00)
[2017-08-05] MEDS ORDERED: CLOPIDOGREL 75MG TABLET PO SCH (10:00)
--- NOTE | 2017-08-05 10:12 | History & Physical ---
History of Present Illness - Date of Service Date of Service for History & Physical: 08/05/17 - History of Present Illness Admitting Diagnosis: Chest pain History of Present Illness: Mr. Chau is a 57 y/o with history of coronary artery disease s/p stent who presented to the ED with complaint of chest discomfort but no overt pain and mild shortness of breath for one day. He says that when he woke up he felt a bit 'run down,' fatigued and had muscle aches. He says that the symptoms are similar to when he had an heart attack before so became concerned and decided to come in. On arrival to the ED the patient had and ECG which was not suggestive of acute VA and showed NSR w/o acute ST-T wave changes. Labs were within normal limitis with negative troponins and chest xray was unremarkable. The patient was admitted for observation on telemetry and serial trending of cardiac enzymes. On evaluation this morning the patient appears awake, alert and oriented in no acute distress. He says that he feels well and does not have any chest discomfort or shortness of breath but the he feels congested. Travel Screening - Travel/Exposure Within Last 30 Days Have you traveled within the last 30 days?: No - Travel/Exposure Within Last Year Have you traveled outside the [place] in the last year?: No - Additonal Travel Details Have you been exposed to anyone with a communicable illness?: No - Travel Symptoms Symptom Screening: None Review of Systems Constitutional: Reports: Malaise. Denies: Chills, Fever, Night sweats Eyes: Denies: Eye discharge, Eye pain ENT: Denies: Congestion, Ear pain, Epistaxis Respiratory: Reports: Dyspnea. Denies: Cough Cardiovascular: Reports: Chest pain. Denies: Dyspnea on exertion, Edema Endocrine: Denies: Fatigue, Heat or cold intolerance Gastrointestinal: Denies: Abdominal pain, Nausea, Vomiting Genitourinary: Denies: Incontinence, Retention Musculoskeletal: Denies: Arthralgia, Back pain, Gout, Joint swelling Skin: Denies: Bruising, Change in color Neurological: Denies: Abnormal gait, Confusion, Headache, Tingling Psychiatric: Denies: Anxiety Hematological/Lymphatic: Denies: Anemia, Blood Clots Past Medical History - SOCIAL HISTORY Smoking Status: Former smoker Alcohol Use: Occasional Drug Use: None - RESPIRATORY Hx Respiratory Disorders: Yes Hx Asthma: Yes Hx Bronchitis: Yes Hx Pneumonia: Yes - CARDIOVASCULAR Hx Cardio Disorders: Yes Hx Cardiac Cath: Yes (2010) Hx Chest Pain: Yes Hx Hypertension: Yes Hx Irregular Heartbeat: Yes Comment:: hyperlipidemia, 1 stent placement. - NEURO Hx Neuro Disorders: No Comment:: blurry vision with this episode of CP and before card cath - GI Hx GI Disorders: Yes Hx Reflux: Yes - Hx Genitourinary Disorders: Yes Hx Kidney Stones: Yes Hx Prostate Problems: Yes Comment:: Infection Resolved Apr 2015 - ENDOCRINE Hx Endocrine Disorders: No Hx Diabetes: No Hx Thyroid Disease: No - MUSCULOSKELETAL Hx Musculoskeletal Disorders: Yes Hx Arthritis: Yes Hx Back Injury: Yes - PSYCH Hx Psych Problems: No - HEMATOLOGY/ONCOLOGY Hx Hematology/Oncology Disorders: No Hx Blood Transfusions: No Family Medical History Any Significant Family History?: No Hx Cancer: Mother Hx Depression: Mother Hx Diabetes: Father, Mother Hx Heart Disease: Father, Mother H&P Meds/Allergies - Allergies Allergies: Allergies Allergy/AdvReac Type Severity Reaction Status Date / Time erythromycin base Allergy Intermediate RASH Verified 08/04/17 19:20 [ERYTHROMYCIN BASE] Penicillins [PENICILLINS] Allergy Intermediate RASH Verified 08/04/17 19:20 - Active Medications Active Medications: Current Medications Acetaminophen/Codeine Phosphate (Tylenol #3) 1 udtab PO Q6H PRN PRN Reason: Pain - Moderate (5-7) Last Admin: 08/04/17 21:28 Dose: 1 udtab Albuterol Sulfate (Ventolin Hfa) 1 - 2 puff INH TID [facility] Last Admin: 08/04/17 22:06 Dose: 2 puff Aspirin (Aspirin, Regular) 81 mg PO DAILY [facility] Last Admin: 08/05/17 10:01 Dose: 81 mg Clopidogrel Bisulfate (Plavix) 75 mg PO DAILY [facility] Last Admin: 08/05/17 09:59 Dose: 75 mg Sodium Chloride () 1,000 mls @ 15 mls/hr IV .Q24H PRN PRN Reason: LARGE VOLUME IV Isosorbide Mononitrate (Imdur) 30 mg PO DAILY [facility] Last Admin: 08/05/17 10:01 Dose: 30 mg Loratadine (Claritin) 10 mg PO DAILY [facility] Last Admin: 08/05/17 09:58 Dose: 10 mg Meloxicam (Mobic) 7.5 mg PO TID [facility] Last Admin: 08/05/17 09:59 Dose: 7.5 mg Metoprolol Succinate (Toprol Xl) 12.5 mg PO DAILY [facility] Last Admin: 08/05/17 09:58 Dose: 12.5 mg Montelukast Sodium (Singulair) 10 mg PO DAILY [facility] Last Admin: 08/05/17 10:01 Dose: 10 mg Nitroglycerin (Nitrostat 0.4mg) 0.4 mg SL Q5MIN PRN PRN Reason: CHEST PAIN Pantoprazole [facility] ([facility]) [facility] Last Admin: 08/05/17 06:25 Dose: 40 mg Simvastatin (Zocor) 20 mg PO DAILY [facility] Last Admin: 08/05/17 09:58 Dose: 20 mg Physical Exam - Vital Signs Vital Signs: Vital Signs - Last 24 Hrs Temp Pulse Pulse Resp BP BP Pulse Ox 08/05/17 08:00 97.8 F 96 H 16 107/68 96 08/05/17 02:17 97.9 F 54 L 17 122/80 96 08/04/17 22:07 58 L 16 98 08/04/17 21:00 55 L 16 08/04/17 20:35 97.7 F 58 L 17 123/74 97 08/04/17 20:34 16 - General General Appearance: Alert, Oriented x3, Cooperative, Mild distress Limitations: No limitations - Head Head exam: Atraumatic, Normocephalic, Normal inspection Head exam detail: negative: Abrasion, Contusion, Dc's sign, General tenderness, Hematoma, Laceration - Eye Eye exam: Normal appearance. negative: Conjunctival injection, Periorbital swelling, Periorbital tenderness, Scleral icterus - ENT Ear exam: negative: Auricular hematoma, Auricular trauma Nasal Exam: negative: Active bleeding, Discharge, Dried blood, Foreign body Mouth exam: negative: Drooling, Laceration, Muffled voice, Tongue elevation - Neck Neck exam: Normal inspection. negative: Meningismus, Tenderness - Respiratory Respiratory exam: Normal lung sounds bilaterally. negative: Respiratory distress, Rhonchi, Stridor, Wheezes - Cardiovascular Cardiovascular Exam: Regular rate, Normal rhythm, Normal heart sounds - GI/Abdominal GI/Abdominal exam: Soft. negative: Distended, Rebound, Rigid, Tenderness - Rectal Rectal exam: Deferred - exam: Deferred - Extremities Extremities exam: Normal inspection. negative: Pedal edema, Tenderness - Back Back exam: Denies: CVA tenderness (R), CVA tenderness (L) - Neurological Neurological exam: Alert, Normal gait, Oriented X3 - Psychiatric Psychiatric exam: Normal affect, Normal mood - Skin Skin exam: Normal color. negative: Abrasion Type of lesion: negative: abrasion Results - Labs Result Diagrams: 08/04/17 18:55 08/04/17 18:55 Labs Last 24 Hours: Laboratory Results - last 24 hr 08/05/17 03:16 Troponin T < 0.010 VTE H&P Assessment - Risk for VTE Risk for VTE: No Risk Level: Very Low Risk Assessment Date: 08/05/17 Risk Assessment Time: 12:03 VTE Orders Placed or Will Be Placed: No VTE Reason for No Prophylaxis: Not Indicated Plan - Detailed Diagnosis and Plan (1) Chest pain Current Visit: Yes Status: Acute Qualifiers: Chest pain type: unspecified Qualified Code(s): R07.9 - Chest pain, unspecified Base Code: R07.9 - CHEST PAIN, UNSPECIFIED Comment: - 08/05/17 - R/O acute coronary artery disease. Troponins negative x 2. ECG: NSR, tele monitor not showing any arrythmias. CXR negative for infiltrates/opacities. Hx of cardiac cath with stable CAD with patent stents. Cardiology consult placed and recommend outpatient dobutamine stress test. - Continue on ASA, Plavix, Zocor, Imdur 30mg daily, Nitorstat .04mg PRN, Toprolol XL 12.5mg daily. (2) Asthma Current Visit: Yes Status: Acute Qualifiers: Asthma severity: mild Asthma persistence: intermittent Base Code: J45.909 - UNSPECIFIED ASTHMA, UNCOMPLICATED Comment: - 08/05/15- patient has hx of asthma with recent PFTs confirming a diagnosis of mild obstructice pattern. Chest xray is negative. - cont taking Albuterol PRN, Arnutity ellipta and Claritin. Patient to continue using Qvar on discharge. (3) Full code status Current Visit: Yes Status: Acute Base Code: Z78.9 - OTHER SPECIFIED HEALTH STATUS Comment: FULL CODE - Disposition D/C today with follow up tomorrow for scheduled dobutamine stress test.
[2017-08-05] MEDS: ALBUTEROL HFA 8 GM INHALER INH SCH (10:41)
--- NOTE | 2017-08-05 12:35 | Discharge Summary ---
Providers Discharge Summary Date: 08/05/17 Date of admission: 08/04/17 20:21 Expected Date of Discharge: 08/05/17 Attending physician: Wilton Watts Primary care physician: MARIE LARIOS Consults: Consult Orders 08/05/17 09:52 Consult - Cardiology NOW Consulting Provider: Raymundo Alejo Physician Instructions: Reason For Exam: chest pain Does pt have current sap specialist?: Unknown Physical Exam - Vital Signs Vital Signs: Vital Signs - Last 24 Hrs Temp Pulse Pulse Resp BP BP Pulse Ox 08/05/17 08:00 97.8 F 96 H 16 107/68 96 08/05/17 02:17 97.9 F 54 L 17 122/80 96 08/04/17 22:07 58 L 16 98 08/04/17 21:00 55 L 16 08/04/17 20:35 97.7 F 58 L 17 123/74 97 08/04/17 20:34 16 - General General Appearance: Alert, Oriented x3, Cooperative, Mild distress Limitations: No limitations - Head Head exam: Atraumatic, Normocephalic, Normal inspection Head exam detail: negative: Abrasion, Contusion, Dc's sign, General tenderness, Hematoma, Laceration - Eye Eye exam: Normal appearance. negative: Conjunctival injection, Periorbital swelling, Periorbital tenderness, Scleral icterus - ENT Ear exam: negative: Auricular hematoma, Auricular trauma Nasal Exam: negative: Active bleeding, Discharge, Dried blood, Foreign body Mouth exam: negative: Drooling, Laceration, Muffled voice, Tongue elevation - Neck Neck exam: Normal inspection. negative: Meningismus, Tenderness - Respiratory Respiratory exam: Normal lung sounds bilaterally. negative: Respiratory distress, Rhonchi, Stridor, Wheezes - Cardiovascular Cardiovascular Exam: Regular rate, Normal rhythm, Normal heart sounds - GI/Abdominal GI/Abdominal exam: Soft. negative: Distended, Rebound, Rigid, Tenderness - Rectal Rectal exam: Deferred - exam: Deferred - Extremities Extremities exam: Normal inspection. negative: Pedal edema, Tenderness - Back Back exam: Denies: CVA tenderness (R), CVA tenderness (L) - Neurological Neurological exam: Alert, Normal gait, Oriented X3 - Psychiatric Psychiatric exam: Normal affect, Normal mood - Skin Skin exam: Normal color. negative: Abrasion Type of lesion: negative: abrasion Hospitalization - Hospitalization Admission Diagnosis: Chest pain - Problem List/Discharge Diagnosis (1) Chest pain Current Visit: Yes Status: Acute Discharge Diagnosis: Chest pain type: unspecified Qualified Code(s): R07.9 - Chest pain, unspecified Base Code: R07.9 - CHEST PAIN, UNSPECIFIED Comment: - 08/05/17 - R/O acute coronary artery disease. Troponins negative x 2. ECG: NSR, tele monitor not showing any arrythmias. CXR negative for infiltrates/opacities. Hx of cardiac cath with stable CAD with patent stents. Cardiology consult placed and recommend outpatient dobutamine stress test. - Continue on ASA, Plavix, Zocor, Imdur 30mg daily, Nitorstat .04mg PRN, Toprolol XL 12.5mg daily. (2) Asthma Current Visit: Yes Status: Acute Discharge Diagnosis: Asthma severity: mild Asthma persistence: intermittent Base Code: J45.909 - UNSPECIFIED ASTHMA, UNCOMPLICATED Comment: - 08/05/15- patient has hx of asthma with recent PFTs confirming a diagnosis of mild obstructice pattern. Chest xray is negative. - cont taking Albuterol PRN, Arnutity ellipta and Claritin. Patient to continue using Qvar on discharge. (3) Full code status Current Visit: Yes Status: Acute Base Code: Z78.9 - OTHER SPECIFIED HEALTH STATUS Comment: FULL CODE - Disposition D/C today with follow up tomorrow for scheduled dobutamine stress test. - Hospitalization Course Hospital Course: Mr. Chau is a 57 y/o with history of coronary artery disease s/p stent who presented to the ED with complaint of chest discomfort but no overt pain and mild shortness of breath for one day. He says that when he woke up he felt a bit 'run down,' fatigued and had muscle aches. He says that the symptoms are similar to when he had an heart attack before so became concerned and decided to come in. On arrival to the ED the patient had and ECG which was not suggestive of acute [place] and showed NSR w/o acute ST-T wave changes. Labs were within normal limitis with negative troponins and chest xray was unremarkable. The patient was admitted for observation on telemetry and serial trending of cardiac enzymes. On evaluation this morning the patient appears awake, alert and oriented in no acute distress. He says that he feels well and does not have any chest discomfort or shortness of breath but the he feels congested. The patient is being discharged home this afternoon with follow up in clinic in 1 week after dobutamine stress test next week /Thursday. Procedures: Cardiology Procedures 08/05/17 06:33 EKG ONCE 08/05/17 09:54 Stress EKG/STD Treadmill NOW 08/05/17 12:14 Stress Test [Cardiolite MPI w/chemical stre] ONCE Condition at Discharge: (1) Good Discharge Medications - Discharge Medications Home Medications: Ambulatory Orders Clopidogrel Bisulfate [Clopidogrel] 1 tab PO DAILY 11/07/13 [Last Taken 08/04/17 ] Isosorbide Mononitrate [Imdur] 30 mg PO DAILY 11/07/13 [Last Taken 08/04/17] Metoprolol Succinate [Toprol Xl] 12.5 mg PO DAILY 11/07/13 [Last Taken 08/04/17] Omeprazole 1 tab PO DAILY 11/07/13 [Last Taken 08/04/17] Fexofenadine HCl 180 mg PO DAILY 01/01/14 [Last Taken 08/04/17] Montelukast Sodium [Singulair] 10 mg PO DAILY 01/01/14 [Last Taken 08/04/17] Multivitamin [Multi-Vitamin Daily] 1 each PO DAILY 01/01/14 [Last Taken 08/04/17 ] Aspirin 81 mg PO DAILY 05/16/14 [Last Taken 08/04/17] Beclomethasone Dipropionate [Qvar] 2 puff IH DAILY 10/27/15 [Last Taken 08/04/17 ] Albuterol Sulfate [Proair Hfa] 1 - 2 puff IH TID inhaler 01/15/17 [Last Taken 08/04/17] Discharge Plan - Discharge Instructions Diet at Discharge: Low Fat, Low Cholesterol Instructions: Chest Pain (DC) Additional Instructions: - Follow up for stress next week (nothing by mouth after midnight)for resting, No caffeine for 24hrs, Do not hold Toprol. Return two hours for and Thursday as per Cardiology. - Compliance with Albuterol and Qvar daily. - 1 week follow in [facility] Quality Measures - Quality Measures Quality Measures: Documentation of Current Medications in Medical Record, Screening for High Blood Pressure and F/U Documented - Current Medications Quality Measure: Measure #130: Documentation of Current Medications Documentation of Current Medications: <Current Medications Documented/Reviewed> [[id number]] - Blood Pressure Screening Quality Measure: Screening for High Blood Pressure and Follow-Up Documented Does Patient Have Any of the Following: Active Dx of HTN Blood Pressure Classification: Normal BP Reading Systolic Measurement: 107 Diastolic Measurement: 68 Screening for High Blood Pressure: Patient Exclusion, Hx of HTN [G9744] - Elder Abuse Suspicion Index EASI Reference Information: Grace GARRETT, Clari C, Edelmira D, Maria Ines Ring.Development and validation of a tool to assist physicians identification of elder abuse: The Elder Abuse Suspicion Index (EASI ). Journal of Elder Abuse and Neglect, 2008; 20 (3): 276-300.
--- NOTE | 2017-08-06 12:40 | Medical Records Consult ---
DATE OF CONSULTATION: 08/05/2017 CHIEF COMPLAINT: Chest pain. HISTORY OF PRESENT ILLNESS: The patient is a 57-year-old white male who has a history of hypertension, coronary artery disease, status post stenting by Dr. Marie several years ago. He has not seen a home performance laborer for 3-4 years. Yesterday he felt tired and had some blurred vision, vague chest discomfort. The blurred vision was essentially what he had prior to his stenting. For that reason, he became concern and came to the emergency room and was admitted. The discomfort in his chest has pretty much resolved. He does have some tenderness to palpation, reproduces the pain. EKGs did not show any acute changes. Troponins are normal x2. He denies any PND or orthopnea. He does state that he has "fluid" all over his body, nobody has been able to ascertain the etiology of which. He is being worked up for a possible inflammatory disorder by cnc machine operator. He is a former smoker, does have COPD as well as "occupational asthma." MEDICATIONS: Prior to admission: 1. Metoprolol. 2. Toprol 5 mg daily. 3. Nitroglycerin p.r.n. 4. Simvastatin 20 mg a day. 5. Aspirin once a day. 6. Albuterol inhaler t.i.d. 7. Plavix 75 mg a day. 8. Isosorbide mononitrate 30 mg a day. 9. Ranitidine 10 mg a day. 10. Mobic t.i.d. ALLERGIES: Reported to ERYTHROMYCIN and PENICILLIN. PAST MEDICAL HISTORY: Dyslipidemia, previous stent placement, COPD, asthma. FAMILY HISTORY: Positive for cancer, depression, and heart disease. REVIEW OF SYSTEMS: Ten-point review of systems reviewed and confirmed. Pertinent positives in HPI, otherwise negative. PHYSICAL EXAMINATION: VITAL SIGNS: Reviewed and confirmed. GENERAL: An obese white male in no acute distress. Oriented x3. Cooperative. HEAD, EYES, EARS, NOSE, THROAT: Normocephalic and atraumatic. Buccal mucosa pink and moist. Uvula midline upon retraction. Lids, conjunctivae, and sclerae are clear. Pupils are equal, round, and reactive to light and accommodation. EOMs are intact. NECK: Supple. No thyromegaly, lymphadenopathy, or carotid bruits noted. CHEST: Increased AP diameter. Clear to auscultation. There is reproduction of chest pain anterior wall. ABDOMEN: Soft. No tenderness or guarding. EXTREMITIES: Pulses equal in upper and lower extremities. There is no edema, cyanosis, or clubbing. PSYCHIATRIC: Mental status is normal. NEUROLOGIC: Cranial nerves II-XII intact. No focal neurologic signs. INTEGUMENT: No significant rashes or breakdown. DIAGNOSTIC DATA: EKG with no acute changes. IMPRESSION: 1. Noncardiac chest pain. 2. History of coronary artery disease, status post stenting in the past. 3. Hypertension. 4. Obesity. 5. Dyslipidemia. 6. Possible connective tissue disorder. PLAN: Cardiac-rae, [place] has been ruled out. I suggest increasing his isosorbide to 60 mg a day although his symptoms do not really sound clearly cardiac in etiology. The length of the discomfort and the fact that the EKG does not show any acute changes, enzymes are normal all speak against it being cardiac. Nonetheless, he has multiple risk factors. He apparently cannot walk in a treadmill, so he needs to have a Lexiscan Cardiolite study which can be scheduled as an outpatient. Follow up in our office once it is completed. SERA
== END 2017-08-05 15:45 | disposition home or self-care (01) ==
LOC: ER 18:34 → MEDSURG 20:21
PROVIDERS: ADMIT Emergency Medicine; ATTEND Emergency Medicine
DX: R07.9 Chest pain, unspecified (principal); I25.10 Atherosclerotic heart disease of native coronary artery without angina pectoris; I25.2 Old myocardial infarction; Z87.891 Personal history of nicotine dependence; I10 Essential (primary) hypertension; E78.5 Hyperlipidemia, unspecified; J45.909 Unspecified asthma, uncomplicated; J44.9 Chronic obstructive pulmonary disease, unspecified; E66.9 Obesity, unspecified
CPT/HCPCS: 99285 ×2; 82550; 85025; 82553; 80053; 84484 ×2; 71046; 94640 ×2; 94760; 93005 ×2; 93010 ×2; G0378 ×2; J3490 ×2; 99220

== ENCOUNTER 2018-10-09 14:53 | Emergency (ER) | payer BC ==
[2018-10-09] MEDS ORDERED: NITROGLYCERIN 0.4MG SL TABLET #25 BTL SL PRN (15:26)
[2018-10-09] MEDS ORDERED: ASPIRIN 81 MG CHEWABLE TABLET PO ONE (15:26)
[2018-10-09 15:38] LABS: BASO % 0.5 % (0-6); EOS % 2.3 % (0-6); GRAN % 67.1 % (47-80); HEMOGLOBIN 15.6 gm/dl (14.0-18.0); LYMPH % 22.3 % (16-45); MEAN CELL VOLUME 89.4 fl (81-97); MEAN CORPUSCULAR HEMOGLOBIN 29.7 pg (27-33); MEAN CORPUSCULAR HGB CONC 33.2 g/dl (32-36); MEAN PLATELET VOLUME 9.9 fl (7.4-10.4); MONO % 7.8 % (0-9); PLATELET COUNT 329 K/uL (130-400); RED BLOOD COUNT 5.26 M/uL (4.40-5.70); RED CELL DISTRIBUTION WIDTH 13.5 % (11.5-14.5); WHITE BLOOD COUNT W/O DIFF 9.6 K/uL (4.2-12.2)
[2018-10-09] MEDS ORDERED: NITROGLYCERIN 0.4MG SL TABLET #25 BTL SL ONE (15:46)
[2018-10-09 15:52] LABS: BLOOD UREA NITROGEN 14 mg/dL (6-20); CREATININE 0.8 mg/dL (0.7-1.2); EST GLOMERULAR FILTRATION RATE > 60 mL/min
[2018-10-09 15:53] LABS: TOTAL PROTEIN 7.4 g/dL (6.6-8.7)
[2018-10-09 15:55] LABS: GLUCOSE,RANDOM 137 mg/dL (74-109)
[2018-10-09 15:57] LABS: ALB/GLOB RATIO 1.6 (1.1-1.8); ALBUMIN 4.6 g/dL (4.0-5.0); ALKALINE PHOSPHATASE 85 U/L (40-129); ALT/SGPT 32 U/L (<41); AST/SGOT 20 U/L (10.0-50.0); CREATINE PHOSPHOKINASE 82 U/L (39-308)
[2018-10-09 15:59] LABS: CKMB 1.6 ng/mL (<6.73)
[2018-10-09 16:00] LABS: NTpro B-NATRIURETIC PEPTIDE 24.27 pg/mL (<125)
--- NOTE | 2018-10-09 17:56 | Emergency Department Record ---
History of Present Illness - General Chief Complaint: Chest Pain Stated Complaint: BLURRED VISION/CHEST PAIN,HIGH BP Time Seen by Provider: 10/09/18 15:21 Source: Patient Mode of Arrival: Ambulatory Limitations: No limitations - History of Present Illness Initial Comments: chest pain this am, gone now. pt has a hx of lad lesion w natalie in 2010. this feels like the same pain. MD Complaint: Chest pain Onset/Timin -: Days(s) Pain Location: Substernal Severity: Moderate Severity scale (1-10): 7 Quality: Aching Consistency: Now resolved Improves With: Nothing Worsens With: Nothing Anginal Symptoms: Dyspnea Treatments Prior to Arrival: Aspirin - Related Data Home Medications Medication Instructions Recorded Confirmed Last Taken Omeprazole 20 mg PO DAILY 10/09/18 10/09/18 1 Day Ago ~10/08/18 Allergies Allergy/AdvReac Type Severity Reaction Status Date / Time clindamycin Allergy Severe DIFFICULTY Verified 10/09/18 15:07 BREATHING erythromycin base Allergy Intermediate RASH Verified 10/09/18 15:07 [ERYTHROMYCIN BASE] Penicillins [PENICILLINS] Allergy Intermediate RASH Verified 10/09/18 15:07 Travel Screening - Travel/Exposure Within Last 30 Days Have you traveled within the last 30 days?: No - Travel/Exposure Within Last Year Have you traveled outside the [place] in the last year?: No - Additonal Travel Details Have you been exposed to anyone with a communicable illness?: No - Travel Symptoms Symptom Screening: None Review of Systems Reviewed: No additional complaints except as noted below Constitutional: Reports: As per HPI. Denies: Chills, Fever, Malaise, Night sweats, Weakness, Weight change Eyes: Reports: As per HPI. Denies: Eye discharge, Eye pain, Photophobia, Vision change ENT: Reports: As per HPI. Denies: Congestion, Dental pain, Ear pain, Epistaxis , Hearing loss, Throat pain Respiratory: Reports: As per HPI. Denies: Cough, Dyspnea, Hemoptysis, Stridor, Wheezes Cardiovascular: Reports: As per HPI, Chest pain. Denies: Arrhythmia, Dyspnea on exertion, Edema, Murmurs, Orthopnea, Palpitations, Paroxysmal nocturnal dyspnea, Rheumatic Fever, Syncope Endocrine: Reports: As per HPI. Denies: Fatigue, Heat or cold intolerance, Polydipsia, Polyuria Gastrointestinal: Reports: As per HPI. Denies: Abdominal pain, Constipation, Diarrhea, Hematemesis, Hematochezia, Melena, Nausea, Vomiting Genitourinary: Reports: As per HPI. Denies: Dysuria, Frequency, Hematuria, Incontinence, Retention, Testicular pain, Testicular mass, Urgency Musculoskeletal: Reports: As per HPI. Denies: Arthralgia, Back pain, Gout, Joint swelling, Myalgia, Neck pain Skin: Reports: As per HPI. Denies: Bruising, Change in color, Change in hair/ nails, Lesions, Pruritus, Rash Neurological: Reports: As per HPI. Denies: Abnormal gait, Confusion, Headache, Numbness, Paresthesias, Seizure, Tingling, Tremors, Vertigo, Weakness Psychiatric: Reports: As per HPI. Denies: Anxiety, Auditory hallucinations, Depression, Homicidal thoughts, Suicidal thoughts, Visual hallucinations Hematological/Lymphatic: Reports: As per HPI. Denies: Anemia, Blood Clots, Easy bleeding, Easy bruising, Swollen glands Past Medical History - SOCIAL HISTORY Smoking Status: Former smoker Alcohol Use: None Drug Use: None - RESPIRATORY Hx Respiratory Disorders: Yes Hx Asthma: Yes (regular, and occupational) Hx Bronchitis: Yes Hx COPD: Yes (enphysema) Hx Pneumonia: Yes - CARDIOVASCULAR Hx Cardio Disorders: Yes Hx Cardiac Cath: Yes (2010) Hx Chest Pain: Yes Hx Hypertension: Yes Hx Irregular Heartbeat: Yes Comment:: hyperlipidemia, 1 stent placement. - NEURO Hx Neuro Disorders: No Comment:: blurry vision with this episode of CP and before card cath - GI Hx GI Disorders: Yes Hx Reflux: Yes - Hx Genitourinary Disorders: Yes Hx Kidney Stones: Yes Hx Prostate Problems: Yes Comment:: Infection Resolved Apr 2015 - ENDOCRINE Hx Endocrine Disorders: No Hx Diabetes: No Hx Thyroid Disease: No - MUSCULOSKELETAL Hx Musculoskeletal Disorders: Yes Hx Arthritis: Yes Hx Back Injury: Yes - PSYCH Hx Psych Problems: No - HEMATOLOGY/ONCOLOGY Hx Hematology/Oncology Disorders: No Hx Blood Transfusions: No Family Medical History Any Significant Family History?: Yes Hx Cancer: Mother Hx Depression: Mother Hx Diabetes: Father, Mother Hx Heart Disease: Father, Mother Physical Exam - General General Appearance: Alert, Oriented x3, Cooperative, Mild distress - Head Head exam: Normal inspection - Eye Eye exam: Normal appearance, PERRL, EOMI Pupils: Normal accommodation - ENT ENT exam: Normal exam, Mucous membranes moist, Normal external ear exam, Normal orophraynx Ear exam: Normal external inspection. negative: External canal tenderness Nasal Exam: Normal inspection. negative: Discharge, Sinus tenderness Mouth exam: Normal external inspection, Tongue normal Teeth exam: Normal inspection. negative: Dental caries Throat exam: Normal inspection. negative: Tonsillar erythema, Tonsillar exudate - Neck Neck exam: Normal inspection, Full ROM. negative: Tenderness - Respiratory Respiratory exam: Normal lung sounds bilaterally. negative: Respiratory distress - Cardiovascular Cardiovascular Exam: Regular rate, Normal rhythm, Normal heart sounds - GI/Abdominal GI/Abdominal exam: Soft, Normal bowel sounds. negative: Tenderness - Rectal Rectal exam: Deferred - exam: Deferred - Extremities Extremities exam: Normal inspection, Full ROM, Normal capillary refill. negative: Tenderness - Back Back exam: Reports: Normal inspection, Full ROM. 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 ] Respiratory 18 18 16 Rate Blood Pressure 140/106 Blood Pressure 112/80 108/77 [Left Arm] Pulse Ox 95 98 98 10/09/18 17:03 Pulse Rate Pulse Rate [ 67 [employer] Supervisor ] Respiratory 16 Rate Blood Pressure Blood Pressure 117/75 [Left Arm] Pulse Ox 98 Medical Decision Making - Lab Data Result diagrams: 10/09/18 15:08 10/09/18 15:08 Lab Results 10/09/18 10/09/18 10/09/18 Range/Units 15:08 15:08 15:08 WBC 9.6 (4.2-12.2) K/uL RBC 5.26 (4.40-5.70) M/uL Hgb 15.6 (14.0-18.0) gm/dl Hct 47.0 (42.0-52.0) % MCV 89.4 (81-97) fl MCH 29.7 (27-33) pg MCHC 33.2 (32-36) g/dl RDW 13.5 (11.5-14.5) % Plt Count 329 (130-400) K/uL MPV 9.9 (7.4-10.4) fl Gran % 67.1 (47-80) % Lymphocytes % 22.3 (16-45) % Monocytes % 7.8 (0-9) % Eosinophils % 2.3 (0-6) % Basophils % 0.5 (0-6) % PT INR APTT D-Dimer 0.29 (0-0.59) mg/L FEU Sodium 138 (136-145) mmol/L Potassium 4.0 (3.4-4.5) mmol/L Chloride 100 (98-107) mmol/L Carbon Dioxide 26.0 (22-29) mmol/L Anion Gap 12.0 (7-16) BUN 14 (6-20) mg/dL Creatinine 0.8 (0.7-1.2) mg/dL Estimated GFR > 60 mL/min Random Glucose 137 H (74-109) mg/dL Calcium 9.6 (8.6-10.0) mg/dL Total Bilirubin 0.60 (0.2-1.0) mg/dL AST 20 (10.0-50.0) U/L ALT 32 (<41) U/L Alkaline Phosphatase 85 (40-129) U/L Creatine Kinase 82 (39-308) U/L CK-MB (CK-2) 1.6 (<6.73) ng/mL Troponin T < 0.010 (0-0.010) ng/mL NT-Pro-B Natriuret Pep 24.27 (<125) pg/mL Total Protein 7.4 (6.6-8.7) g/dL Albumin 4.6 (4.0-5.0) g/dL Globulin 2.8 (1.4-4.8) gm/dL Albumin/Globulin Ratio 1.6 (1.1-1.8) 10/09/18 Range/Units 17:36 WBC (4.2-12.2) K/uL RBC (4.40-5.70) M/uL Hgb (14.0-18.0) gm/dl Hct (42.0-52.0) % MCV (81-97) fl MCH (27-33) pg MCHC (32-36) g/dl RDW (11.5-14.5) % Plt Count (130-400) K/uL MPV (7.4-10.4) fl Gran % (47-80) % Lymphocytes % (16-45) % Monocytes % (0-9) % Eosinophils % (0-6) % Basophils % (0-6) % PT Cancelled INR Cancelled APTT Cancelled D-Dimer (0-0.59) mg/L FEU Sodium (136-145) mmol/L Potassium (3.4-4.5) mmol/L Chloride (98-107) mmol/L Carbon Dioxide (22-29) mmol/L Anion Gap (7-16) BUN (6-20) mg/dL Creatinine (0.7-1.2) mg/dL Estimated GFR mL/min Random Glucose (74-109) mg/dL Calcium (8.6-10.0) mg/dL Total Bilirubin (0.2-1.0) mg/dL AST (10.0-50.0) U/L ALT (<41) U/L Alkaline Phosphatase (40-129) U/L Creatine Kinase (39-308) U/L CK-MB (CK-2) (<6.73) ng/mL Troponin T (0-0.010) ng/mL NT-Pro-B Natriuret Pep (<125) pg/mL Total Protein (6.6-8.7) g/dL Albumin (4.0-5.0) g/dL Globulin (1.4-4.8) gm/dL Albumin/Globulin Ratio (1.1-1.8) Disposition Disposition: Transfer Clinical Impression: Chest pain Qualifiers: Chest pain type: unspecified Qualified Code(s): R07.9 - Chest pain, unspecified Disposition: Acute Care Hospital Transfer Transfer To: [facility] 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
[2018-10-09] MEDS ORDERED: HYDROCODONE/APAP 5/325MG TABLET PO ONE (19:26)
--- NOTE | 2018-10-12 11:11 | RADIOLOGY REPORT ---
EXAM: CHEST, TWO VIEWS HISTORY: CHEST PAIN. TECHNIQUE: Upright PA and lateral views of the chest were obtained. Comparison: Two view chest radiographic examination dated 08/04/17. FINDINGS: The heart is not enlarged and the pulmonary vasculature is nondilated. Linear scarring versus atelectasis is now demonstrated in the lateral left lung base. No lung consolidation is identified. On the lateral view there is a subtle nodular opacity measuring 10 mm at the infrahilar level. This is not seen with confidence on the prior examination. This may relate to superimposition of normal vascular structures with a true lung nodule less likely. The lungs and pleural spaces are otherwise clear. There is reversal of the normal thoracic kyphosis. IMPRESSION: 1. MINOR LINEAR SCARRING VERSUS ATELECTASIS WITHIN THE LEFT LUNG BASE. NO EVIDENCE OF LUNG CONSOLIDATION, PLEURAL EFFUSION, OR PNEUMOTHORAX. 2. ON THE LATERAL VIEW THERE IS A SUBTLE NODULAR OPACITY PROJECTING AT THE INFRAHILAR LEVEL MEASURING 10 MM. THIS IS NOT SEEN ON PRIOR EXAMINATIONS. THIS MAY RELATE TO SUPERIMPOSITION OF NORMAL VASCULAR STRUCTURES THOUGH LUNG NODULE IS NOT ENTIRELY EXCLUDED. SHORT TERM FOLLOW-UP EXAMINATION INCLUDING UPRIGHT PA, LATERAL, AND SHALLOW OBLIQUE VIEWS IS RECOMMENDED. JOB NUMBER: [id number] [facility]
== END 2018-10-09 23:37 | disposition short-term general hospital (02) ==
LOC: ER 14:53
DX: R07.2 Precordial pain (principal); R06.00 Dyspnea, unspecified; R51 Headache; H53.8 Other visual disturbances; J44.9 Chronic obstructive pulmonary disease, unspecified; I10 Essential (primary) hypertension; Z95.5 Presence of coronary angioplasty implant and graft; Z87.891 Personal history of nicotine dependence
CPT/HCPCS: 71046; 80053; 82550; 82553; 83880; 84484; 85025; 85379; 93005; 93010; 99285

== ENCOUNTER 2019-01-25 16:23 | Observation (INO) | payer BC ==
[2019-01-25] MEDS ORDERED: ASPIRIN 81 MG CHEWABLE TABLET PO ONE (16:40)
[2019-01-25] MEDS ORDERED: NITROGLYCERIN 0.4MG SL TABLET #25 BTL SL PRN ×2 (16:40→19:43)
[2019-01-25 16:56] LABS: BASO % 0.6 % (0-6); EOS % 3.6 % (0-6); GRAN % 55.4 % (47-80); HEMATOCRIT 45.9 % (42.0-52.0); HEMOGLOBIN 15.3 gm/dl (14.0-18.0); LYMPH % 30.8 % (16-45); MEAN CELL VOLUME 91.3 fl (81-97); MEAN CORPUSCULAR HEMOGLOBIN 30.4 pg (27-33); MEAN CORPUSCULAR HGB CONC 33.3 g/dl (32-36); MEAN PLATELET VOLUME 9.9 fl (7.4-10.4); MONO % 9.6 % (0-9); PLATELET COUNT 322 K/uL (130-400); RED BLOOD COUNT 5.03 M/uL (4.40-5.70); RED CELL DISTRIBUTION WIDTH 13.6 % (11.5-14.5); WHITE BLOOD COUNT W/O DIFF 10.5 K/uL (4.2-12.2)
[2019-01-25 17:10] LABS: BLOOD UREA NITROGEN 21 mg/dL (6-20); EST GLOMERULAR FILTRATION RATE > 60 mL/min
[2019-01-25 17:13] LABS: GLUCOSE,RANDOM 117 mg/dL (74-109)
[2019-01-25 17:16] LABS: CREATINE PHOSPHOKINASE 78 U/L (39-308)
[2019-01-25 17:19] LABS: CKMB 1.4 ng/mL (<6.73); NTpro B-NATRIURETIC PEPTIDE 16.16 pg/mL (<125)
--- NOTE | 2019-01-25 18:14 | Emergency Department Record ---
History of Present Illness - General Chief Complaint: Shortness of breath Stated Complaint: LIBORIO,CHEST PRESSURE,SORE SHOULDERS Time Seen by Provider: 01/25/19 16:39 Source: Patient Mode of Arrival: Ambulatory Limitations: No limitations - History of Present Illness Initial Comments: pt has had cp off and on for 3 days. he has a hx of a stent in his lad after finding a 90% occlusion. he states this pain is similar but not as bad MD Complaint: Chest pain Onset/Timin -: Days(s) Severity scale (1-10): 7 Consistency: Constant Improves With: Nothing Worsens With: Nothing Known History Of: Asthma Associated Symptoms: Chest pain Treatments Prior to Arrival: None - Related Data Allergies Allergy/AdvReac Type Severity Reaction Status Date / Time clindamycin Allergy Severe DIFFICULTY Verified 01/25/19 16:35 BREATHING erythromycin base Allergy Intermediate RASH Verified 01/25/19 16:35 [ERYTHROMYCIN BASE] Penicillins [PENICILLINS] Allergy Intermediate RASH Verified 01/25/19 16:35 Travel Screening - Travel/Exposure Within Last 30 Days Have you traveled within the last 30 days?: No Review of Systems Reviewed: No additional complaints except as noted below Constitutional: Reports: As per HPI. Denies: Chills, Fever, Malaise, Night sweats, Weakness, Weight change Eyes: Reports: As per HPI. Denies: Eye discharge, Eye pain, Photophobia, Vision change ENT: Reports: As per HPI. Denies: Congestion, Dental pain, Ear pain, Epistaxis, Hearing loss, Throat pain Respiratory: Reports: As per HPI. Denies: Cough, Dyspnea, Hemoptysis, Stridor, Wheezes Cardiovascular: Reports: As per HPI, Chest pain. Denies: Arrhythmia, Dyspnea on exertion, Edema, Murmurs, Orthopnea, Palpitations, Paroxysmal nocturnal dy spnea, Rheumatic Fever, Syncope Endocrine: Reports: As per HPI. Denies: Fatigue, Heat or cold intolerance, Polydipsia, Polyuria Gastrointestinal: Reports: As per HPI. Denies: Abdominal pain, Constipation, Diarrhea, Hematemesis, Hematochezia, Melena, Nausea, Vomiting Genitourinary: Reports: As per HPI. Denies: Dysuria, Frequency, Hematuria, Incontinence, Retention, Testicular pain, Testicular mass, Urgency Musculoskeletal: Reports: As per HPI. Denies: Arthralgia, Back pain, Gout, Joint swelling, Myalgia, Neck pain Skin: Reports: As per HPI. Denies: Bruising, Change in color, Change in hair/nails, Lesions, Pruritus, Rash Neurological: Reports: As per HPI. Denies: Abnormal gait, Confusion, Headache, Numbness, Paresthesias, Seizure, Tingling, Tremors, Vertigo, Weakness Psychiatric: Reports: As per HPI. Denies: Anxiety, Auditory hallucinations, Depression, Homicidal thoughts, Suicidal thoughts, Visual hallucinations Hematological/Lymphatic: Reports: As per HPI. Denies: Anemia, Blood Clots, Easy bleeding, Easy bruising, Swollen glands Past Medical History - SOCIAL HISTORY Smoking Status: Former smoker Alcohol Use: None Drug Use: None - RESPIRATORY Hx Respiratory Disorders: Yes Hx Asthma: Yes (regular, and occupational) Hx Bronchitis: Yes Hx COPD: Yes (enphysema) Hx Pneumonia: Yes - CARDIOVASCULAR Hx Cardio Disorders: Yes Hx Cardiac Cath: Yes (2010) Hx Chest Pain: Yes Hx Hypertension: Yes Hx Irregular Heartbeat: Yes Comment:: hyperlipidemia, 1 stent placement. - NEURO Hx Neuro Disorders: No Comment:: blurry vision with this episode of CP and before card cath - GI Hx GI Disorders: Yes Hx Reflux: Yes - Hx Genitourinary Disorders: Yes Hx Kidney Stones: Yes Hx Prostate Problems: Yes Comment:: Infection Resolved Apr 2015 - ENDOCRINE Hx Endocrine Disorders: No Hx Diabetes: No Hx Thyroid Disease: No - MUSCULOSKELETAL Hx Musculoskeletal Disorders: Yes Hx Arthritis: Yes Hx Back Injury: Yes - PSYCH Hx Psych Problems: No - HEMATOLOGY/ONCOLOGY Hx Hematology/Oncology Disorders: No Hx Blood Transfusions: No Family Medical History Any Significant Family History?: Yes Hx Cancer: Mother Hx Depression: Mother Hx Diabetes: Father, Mother Hx Heart Disease: Father, Mother Physical Exam - General General Appearance: Alert, Oriented x3, Cooperative, Mild distress - Head Head exam: Normal inspection - Eye Eye exam: Normal appearance, PERRL, EOMI Pupils: Normal accommodation - ENT ENT exam: Normal exam, Mucous membranes moist, Normal external ear exam, Normal orophraynx Ear exam: Normal external inspection. negative: External canal tenderness Nasal Exam: Normal inspection. negative: Discharge, Sinus tenderness Mouth exam: Normal external inspection, Tongue normal Teeth exam: Normal inspection. negative: Dental caries Throat exam: Normal inspection. negative: Tonsillar erythema, Tonsillar exudate - Neck Neck exam: Normal inspection, Full ROM. negative: Tenderness - Respiratory Respiratory exam: Normal lung sounds bilaterally. negative: Respiratory distress - Cardiovascular Cardiovascular Exam: Regular rate, Normal rhythm, Normal heart sounds - GI/Abdominal GI/Abdominal exam: Soft, Normal bowel sounds. negative: Tenderness - Rectal Rectal exam: Deferred - exam: Deferred - Extremities Extremities exam: Normal inspection, Full ROM, Normal capillary refill. negati ve: Tenderness - Back Back exam: Reports: Normal inspection, Full ROM. Denies: Muscle spasm, Rash noted, Tenderness - Neurological Neurological exam: Alert, CN II-XII intact, Normal gait, Oriented X3 - Psychiatric Psychiatric exam: Normal affect, Normal mood - Skin Skin exam: Dry, Intact, Normal color, Warm Course Vital Signs 01/25/19 01/25/19 01/25/19 16:30 16:53 16:57 Temperature 97.7 F Pulse Rate 81 Pulse Rate [ 72 73 Supervisor [employer] ] Respiratory 18 18 20 Rate Blood Pressure 137/88 Blood Pressure 120/84 111/74 [Left Arm] Blood Pressure [Right Arm] Pulse Ox 98 96 95 01/25/19 18:03 Temperature Pulse Rate Pulse Rate [ 64 Supervisor [employer] ] Respiratory 16 Rate Blood Pressure Blood Pressure [Left Arm] Blood Pressure 117/78 [Right Arm] Pulse Ox 96 - Reevaluation(s) Reevaluation #1: 01/25/19 18:14 ntg made cp better. d/w dr novoa Medical Decision Making - Lab Data Result diagrams: 01/25/19 16:37 01/25/19 16:37 Lab Results 01/25/19 01/25/19 01/25/19 Range/Units 16:37 16:37 16:37 WBC 10.5 (4.2-12.2) K/uL RBC 5.03 (4.40-5.70) M/uL Hgb 15.3 (14.0-18.0) gm/dl Hct 45.9 (42.0-52.0) % MCV 91.3 (81-97) fl MCH 30.4 (27-33) pg MCHC 33.3 (32-36) g/dl RDW 13.6 (11.5-14.5) % Plt Count 322 (130-400) K/uL MPV 9.9 (7.4-10.4) fl Gran % 55.4 (47-80) % Lymphocytes % 30.8 (16-45) % Monocytes % 9.6 H (0-9) % Eosinophils % 3.6 (0-6) % Basophils % 0.6 (0-6) % Absolute Neutrophils 5.80 D-Dimer 0.33 (0-0.59) mg/L FEU Sodium 139 (136-145) mmol/L Potassium 4.3 (3.4-4.5) mmol/L Chloride 101 (98-107) mmol/L Carbon Dioxide 26.0 (22-29) mmol/L Anion Gap 12.0 (7-16) BUN 21 H (6-20) mg/dL Creatinine 1.0 (0.7-1.2) mg/dL Estimated GFR > 60 mL/min Random Glucose 117 H (74-109) mg/dL Calcium 9.5 (8.6-10.0) mg/dL Creatine Kinase 78 (39-308) U/L CK-MB (CK-2) 1.4 (<6.73) ng/mL Troponin T < 0.010 (0-0.010) ng/mL NT-Pro-B Natriuret Pep 16.16 (<125) pg/mL Disposition Disposition: Admit Clinical Impression: Chest pain Qualifiers: Chest pain type: unspecified Qualified Code(s): R07.9 - Chest pain, unspecified Disposition: Still a Patient at [facility] Decision to Admit: Admit from ER Decision to Admit Date: 01/25/19 Decision to Admit Time: 18:15 Quality - Quality Measures Quality Measures: N/A - Blood Pressure Screening Does Patient Have Any of the Following: No Blood Pressure Classification: Pre-Hypertensive BP Reading Systolic Measurement: 137 Diastolic Measurement: 88 Screening for High Blood Pressure: < Pre-Hypertensive BP, F/U Documented > [G8950] Pre-Hypertensive Follow-up Interventions: Follow-up with rescreen every year.
[2019-01-25] MEDS ORDERED: ACETAMINOPHEN W/ CODEINE 300MG/30MG TABLET PO PRN (19:43)
[2019-01-25] MEDS ORDERED: MELOXICAM 7.5 MG TABLET PO SCH (22:00)
[2019-01-25] MEDS ORDERED: ALBUTEROL HFA 8 GM INHALER INH SCH ×2 (22:00)
[2019-01-26 02:27] LABS: CKMB 1.3 ng/mL (<6.73)
[2019-01-26] MEDS ORDERED: PANTOPRAZOLE SODIUM 40 MG TABLET PO SCH (07:00)
[2019-01-26] MEDS ORDERED: ALBUTEROL HFA 8 GM INHALER INH PRN (09:08)
--- NOTE | 2019-01-26 09:46 | History & Physical ---
History of Present Illness - Date of Service Date of Service for History & Physical: 01/26/19 - History of Present Illness Admitting Diagnosis: chest pain History of Present Illness: 58 year old male patient presented to ED for evaluation of intermittent chest pain, substernal pressure, and shortness of breath x 3 days. Patient reports checking his pulse ox at home frequently due to a history of asthma, and noted it to be 93% over the last 3 days, which is lower than his normal. Patient reports a cardiac history significant for a stent to his LAD in 2010. His most recent stress test was 6 months ago, with patient reporting no abnormal findings. Patient's medical history also includes HTN, hyperlipidemia, 2 neck surgeries, and asthma. Patient reports feeling that the current symptoms may be more related to an asthma flare. States he takes Symbicort, Singulair, and Albuterol prn for asthma control, and reports typically being well-controlled. Follows with rehab director occupational therapist (Dr. Fregoso). Patient reports getting new furniture and frequ ently being exposed to smoke in his neighborhood, which could be triggering his asthma symptoms to worsen. Patient states he has had no symptoms since admission. Denies chest pain, chest pressure, or shortness of breath. Patient received 2 SL Nitro in the ED which improved his symptoms at that time. PCP: Dr. Zarate Conveyor Mechanic: Dr. Saini and Katia Wire Drawing Machine Operator: Dr. Fregoso ED Course: VS: Temp 97.7F, HR 81, RR 18, BP 137/88, Pulse ox 98% EKG: NSR, rate 65 CXR: No acute cardiopulmonary process CBC, BMP, BNP WNL D-dimer 0.33 Trop <0.01, CKMB 1.4 01/26/19: Patient A&O x 4, resting comfortably in bed. Patient denies chest pain, pressure, or shortness of breath at this time. Awaiting cardiology consult. Continue with manager cardiac cath, serial cardiac enzymes. Travel Screening - Travel/Exposure Within Last 30 Days Have you traveled within the last 30 days?: No - Travel/Exposure Within Last Year Have you traveled outside the [place] in the last year?: No - Additonal Travel Details Have you been exposed to anyone with a communicable illness?: No Review of Systems Reviewed: No additional complaints except as noted below Constitutional: Reports: As per HPI. Denies: Chills, Fever, Malaise, Night sweats, Weakness, Weight change Eyes: Reports: As per HPI. Denies: Eye discharge, Eye pain, Photophobia, Vision change ENT: Reports: As per HPI. Denies: Congestion, Dental pain, Ear pain, Epistaxis, Hearing loss, Throat pain Respiratory: Reports: As per HPI. Denies: Cough, Dyspnea, Hemoptysis, Stridor, Wheezes Cardiovascular: Reports: As per HPI, Chest pain, Dyspnea on exertion. Denies: Arrhythmia, Edema, Murmurs, Orthopnea, Palpitations, Paroxysmal nocturnal dyspnea, Rheumatic Fever, Syncope Endocrine: Reports: As per HPI. Denies: Fatigue, Heat or cold intolerance, Polydipsia, Polyuria Gastrointestinal: Reports: As per HPI. Denies: Abdominal pain, Constipation, Diarrhea, Hematemesis, Hematochezia, Melena, Nausea, Vomiting Genitourinary: Reports: As per HPI. Denies: Dysuria, Frequency, Hematuria, Incontinence, Retention, Testicular pain, Testicular mass, Urgency Musculoskeletal: Reports: As per HPI. Denies: Arthralgia, Back pain, Gout, Joint swelling, Myalgia, Neck pain Skin: Reports: As per HPI. Denies: Bruising, Change in color, Change in hair/nails, Lesions, Pruritus, Rash Neurological: Reports: As per HPI. Denies: Abnormal gait, Confusion, Headache, Numbness, Paresthesias, Seizure, Tingling, Tremors, Vertigo, Weakness Psychiatric: Reports: As per HPI. Denies: Anxiety, Auditory hallucinations, Depression, Homicidal thoughts, Suicidal thoughts, Visual hallucinations Hematological/Lymphatic: Reports: As per HPI. Denies: Anemia, Blood Clots, Easy bleeding, Easy bruising, Swollen glands Past Medical History - SOCIAL HISTORY Smoking Status: Former smoker Alcohol Use: None Drug Use: None - RESPIRATORY Hx Respiratory Disorders: Yes Hx Asthma: Yes (regular, and occupational) Hx Bronchitis: Yes Hx COPD: Yes (emphysema) Hx Pneumonia: Yes - CARDIOVASCULAR Hx Cardio Disorders: Yes Hx Cardiac Cath: Yes (2010) Hx Chest Pain: Yes Hx Hypertension: Yes Hx Irregular Heartbeat: Yes Comment:: hyperlipidemia, 1 stent placement. - NEURO Hx Neuro Disorders: No Comment:: blurry vision with this episode of CP and before card cath - GI Hx GI Disorders: Yes Hx Reflux: Yes - Hx Genitourinary Disorders: Yes Hx Kidney Stones: Yes Hx Prostate Problems: Yes Comment:: Infection Resolved Apr 2015 - ENDOCRINE Hx Endocrine Disorders: No Hx Diabetes: No Hx Thyroid Disease: No - MUSCULOSKELETAL Hx Musculoskeletal Disorders: Yes Hx Arthritis: Yes Hx Back Injury: Yes - PSYCH Hx Psych Problems: No - HEMATOLOGY/ONCOLOGY Hx Hematology/Oncology Disorders: No Hx Blood Transfusions: No Family Medical History Any Significant Family History?: Yes Hx Cancer: Mother Hx Depression: Mother Hx Diabetes: Father, Mother Hx Heart Disease: Father, Mother H&P Meds/Allergies - Allergies Allergies: Allergies Allergy/AdvReac Type Severity Reaction Status Date / Time clindamycin Allergy Severe DIFFICULTY Verified 01/25/19 16:35 BREATHING erythromycin base Allergy Intermediate RASH Verified 01/25/19 16:35 [ERYTHROMYCIN BASE] Penicillins [PENICILLINS] Allergy Intermediate RASH Verified 01/25/19 16:35 - Home Medications Home Medications Medication Instructions Recorded Confirmed Last Taken Albuterol Sulfate [Proair Hfa] 2 puff IH Q4H PRN 01/26/19 01/26/19 Unknown Simvastatin 20 mg PO QHS 01/26/19 01/26/19 Unknown - Active Medications Active Medications: Current Medications Acetaminophen/Codeine Phosphate (Tylenol #3) 1 udtab PO Q6H PRN PRN Reason: PAIN - MOD TO SEVERE (5-10) Last Admin: 01/25/19 21:32 Dose: 1 udtab Documented by: Albuterol Sulfate (Ventolin Hfa) 2 puff INH Q4H PRN PRN Reason: DIFFICULTY IN BREATHING Aspirin (Ecotrin (Ec)) 325 mg PO DAILY [facility] Loratadine (Claritin) 10 mg PO DAILY [facility] Nitroglycerin (Nitrostat 0.4mg) 0.4 mg SL Q5MIN PRN PRN Reason: CHEST PAIN Patient Own Med: Symbicort 160/4.5 Mcg 2 each INH BID [facility] Patient Own Med: Isosorbide Mononitrate 30 Mg 1 each PO DAILY [facility] Patient Own Med: (Lisinopril 20 Mg) 1 each PO DAILY [facility] Patient Own Med: Metoprolol Succinate 25 Mg 0.5 each PO DAILY [facility] Patient Own Med: (Montelukast 10 Mg) 1 each PO DAILY [facility] Patient Own Med: (Simvastatin 20 Mg) 1 each PO QHS [facility] Patient Own Med: (Meloxicam 7.5 Mg) 1 each PO BID [facility] Patient Own Med: (Omeprazole 20 Mg) 1 each PO DAILYAC [facility] Physical Exam - Vital Signs Vital Signs: Vital Signs - Last 24 Hrs Temp Pulse Pulse Pulse Resp BP BP 01/26/19 09:00 97.8 F 56 L 57 L 18 01/26/19 05:00 97.2 F L 52 L 16 01/26/19 01:07 97.7 F 50 L 16 01/25/19 21:55 57 L 18 01/25/19 21:43 97.5 F L 57 L 16 01/25/19 20:02 16 01/25/19 19:25 97.3 F L 68 18 01/25/19 19:11 57 L 16 01/25/19 18:03 64 16 01/25/19 16:57 73 20 111/74 01/25/19 16:53 72 18 120/84 01/25/19 16:30 97.7 F 81 18 137/88 BP Pulse Ox 01/26/19 09:00 120/72 97 01/26/19 05:00 112/66 97 01/26/19 01:07 93/60 97 01/25/19 21:55 96 01/25/19 21:43 128/80 95 01/25/19 20:02 01/25/19 19:25 118/79 96 01/25/19 19:11 114/80 96 01/25/19 18:03 117/78 96 01/25/19 16:57 95 01/25/19 16:53 96 01/25/19 16:30 98 - General General Appearance: Alert, Oriented x3, Cooperative, No acute distress Limitations: No limitations - Head Head exam: Normal inspection - Eye Eye exam: Normal appearance, PERRL, EOMI Pupils: Normal accommodation - ENT ENT exam: Normal exam, Mucous membranes moist, Normal external ear exam, Normal orophraynx Ear exam: Normal external inspection. negative: External canal tenderness Nasal Exam: Normal inspection. negative: Discharge, Sinus tenderness Mouth exam: Normal external inspection, Tongue normal Teeth exam: negative: Dental caries Throat exam: negative: Tonsillar erythema, Tonsillar exudate - Neck Neck exam: Normal inspection. negative: Tenderness - Respiratory Respiratory exam: Normal lung sounds bilaterally. negative: Respiratory distress - Cardiovascular Cardiovascular Exam: Regular rate, Normal rhythm, Normal heart sounds Peripheral Pulses: 2+: Radial (R), Radial (L), Dorsalis Pedis (R), Dorsalis Pedis (L) - GI/Abdominal GI/Abdominal exam: Soft. negative: Tenderness - Rectal Rectal exam: Deferred - exam: Deferred - Extremities Extremities exam: Normal inspection, Full ROM, Normal capillary refill. negative: Tenderness - Back Back exam: Reports: Normal inspection. Denies: Muscle spasm, Rash noted, Tenderness - Neurological Neurological exam: Alert, Normal gait, Oriented X3 - Psychiatric Psychiatric exam: Normal affect, Normal mood - Skin Skin exam: Dry, Intact, Normal color, Warm Results - Labs Result Diagrams: 01/25/19 16:37 01/25/19 16:37 Labs Last 24 Hours: Laboratory Results - last 24 hr 01/25/19 01/25/19 01/25/19 16:37 16:37 16:37 WBC 10.5 RBC 5.03 Hgb 15.3 Hct 45.9 MCV 91.3 MCH 30.4 MCHC 33.3 RDW 13.6 Plt Count 322 MPV 9.9 Gran % 55.4 Lymphocytes % 30.8 Monocytes % 9.6 H Eosinophils % 3.6 Basophils % 0.6 Absolute Neutrophils 5.80 D-Dimer 0.33 Sodium 139 Potassium 4.3 Chloride 101 Carbon Dioxide 26.0 Anion Gap 12.0 BUN 21 H Creatinine 1.0 Estimated GFR > 60 Random Glucose 117 H Calcium 9.5 Creatine Kinase 78 CK-MB (CK-2) 1.4 Troponin T < 0.010 NT-Pro-B Natriuret Pep 16.16 01/26/19 01/26/19 01:00 01:05 WBC RBC Hgb Hct MCV MCH MCHC RDW Plt Count MPV Gran % Lymphocytes % Monocytes % Eosinophils % Basophils % Absolute Neutrophils D-Dimer Sodium Potassium Chloride Carbon Dioxide Anion Gap BUN Creatinine Estimated GFR Random Glucose Calcium Creatine Kinase CK-MB (CK-2) Cancelled 1.3 Troponin T < 0.010 NT-Pro-B Natriuret Pep - Imaging and Cardiology Chest x-ray Status: Report reviewed VTE H&P Assessment - Risk for VTE Risk for VTE: Yes Risk Level: Low Risk Assessment Date: 01/26/19 Risk Assessment Time: 09:48 VTE Orders Placed or Will Be Placed: No VTE Reason for No Prophylaxis: Not Indicated Plan - Detailed Diagnosis and Plan (1) Chest pain Current Visit: Yes Status: Acute Qualifiers: Chest pain type: unspecified Qualified Code(s): R07.9 - Chest pain, unspecified Base Code: R07.9 - CHEST PAIN, UNSPECIFIED Comment: 01/26/19: -Asymptomatic since adimssion -Hx of cardiac cath in 2010 with stent placed in LAD, negative stress test 6 months ago -Troponins and CKMB neg x 2 -ECG: NSR, rate 65 -No abnormalities noted on manager cardiac cath -CXR: No acute cardiopulmonary process -Cardiology consult placed (2) Asthma Current Visit: No Status: Acute Qualifiers: Asthma severity: mild Asthma persistence: intermittent Base Code: J45.909 - UNSPECIFIED ASTHMA, UNCOMPLICATED Comment: 01/26/19: -History of asthma, followed by rehab director occupational therapist Dr. Fregoso -Continue regimen of Symbicort, albuterol prn, and Singulair -CXR: negative for acute process -Pulse ox 98% RA, no acute distress (3) DVT prophylaxis Current Visit: Yes Status: Acute Base Code: Z29.9 - ENCOUNTER FOR PROPHYLACTIC MEASURES, UNSPECIFIED Comment: 01/26/19: -Low risk due to age and ambulation status -Encourage ambulation within the room, as patient is anticipated to be hospitalized for less than 24 hours (4) Full code status Current Visit: No Status: Acute Base Code: Z78.9 - OTHER SPECIFIED HEALTH STATUS Comment: 01/26/19: -Full code this admission
[2019-01-26] MEDS: ASPIRIN 325 MG TAB ENTERIC-COATED PO SCH ×3 (09:59→11:33)
[2019-01-26] MEDS ORDERED: ISOSORBIDE MONONITRATE 30 MG PO SCH (10:00)
[2019-01-26] MEDS ORDERED: LORATADINE 10 MG TABLET PO SCH (10:00)
[2019-01-26] MEDS ORDERED: PATIENT OWN MED: LISINOPRIL 20 MG PO SCH (10:00)
[2019-01-26] MEDS ORDERED: PATIENT OWN MED: MONTELUKAST 10 MG PO SCH (10:00)
[2019-01-26] MEDS ORDERED: SYMBICORT INH SCH (10:00)
[2019-01-26] MEDS ORDERED: MELOXICAM 7.5 MG PO SCH (10:00)
[2019-01-26] MEDS ORDERED: PATIENT OWN MED: METOPROLOL SUCCINATE 25 MG PO SCH (10:00)
[2019-01-26] MEDS ORDERED: PATIENT OWN MED: ASPIRIN 325 MG PO SCH (10:15)
--- NOTE | 2019-01-26 12:31 | Discharge Summary ---
Providers Discharge Summary Date: 01/26/19 Date of admission: 01/25/19 19:21 Expected Date of Discharge: 01/26/19 Attending physician: MARIE ZARATE Primary care physician: MARIE ZARATE Consults: Consult Orders 01/25/19 19:43 Consult NOW Consulting Provider: Radames Saini Physician Instructions: Reason For Exam: cp Physical Exam - Vital Signs Vital Signs: Vital Signs - Last 24 Hrs Temp Pulse Pulse Pulse Resp BP BP 01/26/19 10:05 61 16 01/26/19 09:00 97.8 F 56 L 57 L 16 01/26/19 05:00 97.2 F L 52 L 16 01/26/19 01:07 97.7 F 50 L 16 01/25/19 21:55 57 L 18 01/25/19 21:43 97.5 F L 57 L 16 01/25/19 20:02 16 01/25/19 19:25 97.3 F L 68 18 01/25/19 19:11 57 L 16 01/25/19 18:03 64 16 01/25/19 16:57 73 20 111/74 01/25/19 16:53 72 18 120/84 01/25/19 16:30 97.7 F 81 18 137/88 BP Pulse Ox 01/26/19 10:05 96 01/26/19 09:00 120/72 97 01/26/19 05:00 112/66 97 01/26/19 01:07 93/60 97 01/25/19 21:55 96 01/25/19 21:43 128/80 95 01/25/19 20:02 01/25/19 19:25 118/79 96 01/25/19 19:11 114/80 96 01/25/19 18:03 117/78 96 01/25/19 16:57 95 01/25/19 16:53 96 01/25/19 16:30 98 - General General Appearance: Alert, Oriented x3, Cooperative, No acute distress Limitations: No limitations - Head Head exam: Normal inspection - Eye Eye exam: Normal appearance, PERRL, EOMI Pupils: Normal accommodation - ENT ENT exam: Normal exam, Mucous membranes moist, Normal external ear exam, Normal orophraynx Ear exam: Normal external inspection. negative: External canal tenderness Nasal Exam: Normal inspection. negative: Discharge, Sinus tenderness Mouth exam: Normal external inspection, Tongue normal Teeth exam: negative: Dental caries Throat exam: negative: Tonsillar erythema, Tonsillar exudate - Neck Neck exam: Normal inspection. negative: Tenderness - Respiratory Respiratory exam: Normal lung sounds bilaterally. negative: Respiratory distress - Cardiovascular Cardiovascular Exam: Regular rate, Normal rhythm, Normal heart sounds Peripheral Pulses: 2+: Radial (R), Radial (L), Dorsalis Pedis (R), Dorsalis Pedis (L) - GI/Abdominal GI/Abdominal exam: Soft. negative: Tenderness - Rectal Rectal exam: Deferred - exam: Deferred - Extremities Extremities exam: Normal inspection, Full ROM, Normal capillary refill. negative: Tenderness - Back Back exam: Reports: Normal inspection. Denies: Muscle spasm, Rash noted, Tenderness - Neurological Neurological exam: Alert, Normal gait, Oriented X3 - Psychiatric Psychiatric exam: Normal affect, Normal mood - Skin Skin exam: Dry, Intact, Normal color, Warm Hospitalization - Hospitalization Admission Diagnosis: chest pain - Problem List/Discharge Diagnosis (1) Chest pain Status: Acute Discharge Diagnosis: Chest pain type: unspecified Qualified Code(s): R07.9 - Chest pain, unspecified Base Code: R07.9 - CHEST PAIN, UNSPECIFIED Comment: 01/26/19: -Asymptomatic since adimssion -Hx of cardiac cath in 2010 with stent placed in LAD, negative stress test 6 months ago -Troponins and CKMB neg x 2 -ECG: NSR, rate 65 -No abnormalities noted on radiation monitor -CXR: No acute cardiopulmonary process -Cardiology consult recommend follow-up outpatient, cleared for DC (2) Asthma Status: Acute Discharge Diagnosis: Asthma severity: mild Asthma persistence: intermittent Base Code: J45.909 - UNSPECIFIED ASTHMA, UNCOMPLICATED Comment: 01/26/19: -History of asthma, followed by casing finisher and stuffer Dr. Fregoso -Continue regimen of Symbicort, albuterol prn, and Singulair -CXR: negative for acute process -Pulse ox 98% RA, no acute distress (3) DVT prophylaxis Status: Acute Base Code: Z29.9 - ENCOUNTER FOR PROPHYLACTIC MEASURES, UNSPECIFIED Comment: 01/26/19: -Low risk due to age and ambulation status -Encourage ambulation within the room, as patient is anticipated to be hospitalized for less than 24 hours (4) Full code status Status: Acute Base Code: Z78.9 - OTHER SPECIFIED HEALTH STATUS Comment: 01/26/19: -Full code this admission - Hospitalization Course Disposition: Home, Self-Care Hospital Course: 58 year old male patient presented to ED for evaluation of intermittent chest pain, substernal pressure, and shortness of breath x 3 days. Patient reports checking his pulse ox at home frequently due to a history of asthma, and noted it to be 93% over the last 3 days, which is lower than his normal. Patient reports a cardiac history significant for a stent to his LAD in 2010. His most recent stress test was 6 months ago, with patient reporting no abnormal findings. Patient's medical history also includes HTN, hyperlipidemia, 2 neck surgeries, and asthma. Patient reports feeling that the current symptoms may be more related to an asthma flare. States he takes Symbicort, Singulair, and Albuterol prn for asthma control, and reports typically being well-controlled. Follows with casing finisher and stuffer (Dr. Fregoso). Patient reports getting new furniture and frequently being exposed to smoke in his neighborhood, which could be triggering his asthma symptoms to worsen. Patient states he has had no symptoms since admission. Denies chest pain, chest pressure, or shortness of breath. Patient received 2 SL Nitro in the ED which improved his symptoms at that time. PCP: Dr. Zarate Home Energy Consultant Supervisor: Dr. Saini and Katia Raw Shellfish Preparer: Dr. Fregoso ED Course: VS: Temp 97.7F, HR 81, RR 18, BP 137/88, Pulse ox 98% EKG: NSR, rate 65 CXR: No acute cardiopulmonary process CBC, BMP, BNP WNL D-dimer 0.33 Trop <0.01, CKMB 1.4 01/26/19: Patient A&O x 4, resting comfortably in bed. Patient denies chest pain, pressure, or shortness of breath at this time. Awaiting cardiology consult. Continue with radiation monitor, serial cardiac enzymes. UPDATE: Follow-up with cardiology in 3-4 weeks. Procedures: Imaging and X-Rays 01/25/19 17:42 CXR [CHEST 2 VIEWS] [RAD] Stat Cardiology Procedures 01/25/19 16:40 Mutuel Cashier NOW EKG NOW 01/25/19 19:43 EKG QDX2@0600 Abnormal Labs: Abnormal Lab Results 01/25/19 01/25/19 01/26/19 Range/Units 16:37 16:37 09:38 Monocytes % 9.6 H (0-9) % BUN 21 H (6-20) mg/dL Random Glucose 117 H (74-109) mg/dL HDL Cholesterol 35 L (40-60) mg/dL Condition at Discharge: (1) Good VTE Discharge VTE Reason For No Overlap Therapy: Not Indicated Discharge Medications - Discharge Medications Home Medications: Ambulatory Orders Fexofenadine HCl 180 mg PO DAILY 01/01/14 [Last Taken 01/25/19] Multivitamin [Multi-Vitamin Daily] 1 each PO DAILY 01/01/14 [Last Taken 1 Day Ago ~10/08/18] Aspirin 325 mg PO DAILY 05/16/14 [Last Taken 01/25/19] Budesonide/Formoterol Fumarate [Symbicort 160-4.5 Mcg Inhaler] 2 puff IH DAILY 90 Days #180 puff 04/16/18 [Last Taken 01/25/19] Omeprazole 20 mg PO DAILY 10/09/18 [Last Taken 01/25/19] Albuterol Sulfate [Proair Hfa] 2 puff IH Q4H PRN 01/26/19 [Last Taken Unknown] Simvastatin 20 mg PO QHS 01/26/19 [Last Taken Unknown] Discharge Plan - Discharge Instructions Activity at Discharge: Increase Activity as Tolerated Diet at Discharge: Advance to Usual Diet Instructions: Chest Pain (DC), Asthma (DC) Additional Instructions: -Follow-up with cardiology as scheduled -Follow-up with PCP Dr. Zarate in 2 weeks -Return to ER if symptoms worsen or any new symptoms of chest pain or shortness of breath develop Quality Measures - Quality Measures Quality Measures: Documentation of Current Medications in Medical Record, Screening for High Blood Pressure and F/U Documented - Current Medications Quality Measure: Measure #130: Documentation of Current Medications Documentation of Current Medications: <Current Medications Documented/Reviewed> [[id number]] - Blood Pressure Screening Quality Measure: Screening for High Blood Pressure and Follow-Up Documented Does Patient Have Any of the Following: Active Dx of HTN Blood Pressure Classification: Pre-Hypertensive BP Reading Systolic Measurement: 137 Diastolic Measurement: 88 Screening for High Blood Pressure: Patient Exclusion, Hx of HTN [G9744] - Elder Abuse Suspicion Index EASI Reference Information: Grace GARRETT, Clari Mcmahon, Edelmira Ng, Maria Ines Ring.Development and validation of a tool to assist physicians identification of elder abuse: The Elder Abuse Suspicion Index (EASI ). Journal of Elder Abuse and Neglect, 2008; 20 (3): 276-300.
--- NOTE | 2019-01-26 17:50 | RADIOLOGY REPORT ---
EXAM: CHEST 2 VIEWS HISTORY: CHEST PRESSURE AND TIGHTNESS SINCE THURSDAY. SHOULDER PAIN. TECHNIQUE: PA and lateral upright views of the chest were obtained. COMPARISON: October 09, 2018. FINDINGS: The heart is normal in size. The mediastinum and pulmonary vasculature are normal. The lungs are mildly hyperinflated. There are no acute infiltrates or effusions. There is no pneumothorax. The bones appear intact. IMPRESSION: NO ACUTE CHEST PATHOLOGY. JOB NUMBER: [id number] MTDD
[2019-01-26] MEDS ORDERED: PATIENT OWN MED: SIMVASTATIN 20 MG PO SCH (22:00)
[2019-01-27] MEDS ORDERED: PATIENT OWN MED: OMEPRAZOLE 20 MG PO SCH (07:00)
== END 2019-01-26 13:00 | disposition home or self-care (01) ==
LOC: ER 16:23 → MEDSURG 19:21
PROVIDERS: ADMIT Internal Medicine; ATTEND Internal Medicine
DX: R07.9 Chest pain, unspecified (principal); R06.02 Shortness of breath; J45.909 Unspecified asthma, uncomplicated; M25.512 Pain in left shoulder; M25.511 Pain in right shoulder; H53.8 Other visual disturbances; J43.9 Emphysema, unspecified; J44.9 Chronic obstructive pulmonary disease, unspecified; I10 Essential (primary) hypertension; E78.5 Hyperlipidemia, unspecified; K21.9 Gastro-esophageal reflux disease without esophagitis; M19.90 Unspecified osteoarthritis, unspecified site; Z95.5 Presence of coronary angioplasty implant and graft; Z98.61 Coronary angioplasty status; Z87.891 Personal history of nicotine dependence; Z87.442 Personal history of urinary calculi
CPT/HCPCS: 82550; 85025; 82553 ×2; 80048; 80061; 84484 ×2; 85379; 83880; 71046; 94640 ×2; 93005 ×2; 93010; G0378 ×2; 99220; 99285

== ENCOUNTER 2019-02-10 10:27 | Emergency (ER) | payer BC ==
[2019-02-10 11:29] LABS: ABSOLUTE NEUTROPHIL COUNT 4.09; BASO % 0.6 % (0-6); EOS % 2.7 % (0-6); GRAN % 58.2 % (47-80); HEMATOCRIT 44.9 % (42.0-52.0); LYMPH % 30.8 % (16-45); MEAN CELL VOLUME 90.7 fl (81-97); MEAN CORPUSCULAR HEMOGLOBIN 30.3 pg (27-33); MEAN CORPUSCULAR HGB CONC 33.4 g/dl (32-36); MEAN PLATELET VOLUME 9.8 fl (7.4-10.4); MONO % 7.7 % (0-9); PLATELET COUNT 322 K/uL (130-400); RED BLOOD COUNT 4.95 M/uL (4.40-5.70); RED CELL DISTRIBUTION WIDTH 13.3 % (11.5-14.5)
--- NOTE | 2019-02-10 11:39 | Emergency Department Record ---
History of Present Illness - General Chief Complaint: Chest Pain Stated Complaint: CHEST PAIN Time Seen by Provider: 02/10/19 10:48 Source: Patient Mode of Arrival: Ambulatory Limitations: No limitations - History of Present Illness Initial Comments: pt came in because his pulse was briefly fast and his o2 sats dropped to 92. this alarmed him and he came in. his sats and pulse are normal now. he doesnt have chest pain MD Complaint: Other Onset/Timin -: Minutes(s) Onset: Other Pain Location: Left chest Severity scale (1-10): 3 Quality: Aching Consistency: Constant Improves With: Nothing Worsens With: Nothing Treatments Prior to Arrival: Aspirin - Related Data Allergies Allergy/AdvReac Type Severity Reaction Status Date / Time clindamycin Allergy Severe DIFFICULTY Verified 02/10/19 10:29 BREATHING erythromycin base Allergy Intermediate RASH Verified 02/10/19 10:29 [ERYTHROMYCIN BASE] Penicillins [PENICILLINS] Allergy Intermediate RASH Verified 02/10/19 10:29 Travel Screening - Travel/Exposure Within Last 30 Days Have you traveled within the last 30 days?: No - Travel/Exposure Within Last Year Have you traveled outside the [place] in the last year?: No - Additonal Travel Details Have you been exposed to anyone with a communicable illness?: No - Travel Symptoms Symptom Screening: None Review of Systems Reviewed: No additional complaints except as noted below Constitutional: Reports: As per HPI. Denies: Chills, Fever, Malaise, Night sweats, Weakness, Weight change Eyes: Reports: As per HPI. Denies: Eye discharge, Eye pain, Photophobia, Vision change ENT: Reports: As per HPI. Denies: Congestion, Dental pain, Ear pain, Epistaxis, Hearing loss, Throat pain Respiratory: Reports: As per HPI. Denies: Cough, Dyspnea, Hemoptysis, Stridor, Wheezes Cardiovascular: Reports: As per HPI. Denies: Arrhythmia, Chest pain, Dyspnea on exertion, Edema, Murmurs, Orthopnea, Palpitations, Paroxysmal nocturnal dyspnea, Rheumatic Fever, Syncope Endocrine: Reports: As per HPI. Denies: Fatigue, Heat or cold intolerance, Polydipsia, Polyuria Gastrointestinal: Reports: As per HPI. Denies: Abdominal pain, Constipation, Diarrhea, Hematemesis, Hematochezia, Melena, Nausea, Vomiting Genitourinary: Reports: As per HPI. Denies: Dysuria, Frequency, Hematuria, Incontinence, Retention, Testicular pain, Testicular mass, Urgency Musculoskeletal: Reports: As per HPI. Denies: Arthralgia, Back pain, Gout, Joint swelling, Myalgia, Neck pain Skin: Reports: As per HPI. Denies: Bruising, Change in color, Change in hair/nails, Lesions, Pruritus, Rash Neurological: Reports: As per HPI. Denies: Abnormal gait, Confusion, Headache, Numbness, Paresthesias, Seizure, Tingling, Tremors, Vertigo, Weakness Psychiatric: Reports: As per HPI. Denies: Anxiety, Auditory hallucinations, Depression, Homicidal thoughts, Suicidal thoughts, Visual hallucinations Hematological/Lymphatic: Reports: As per HPI. Denies: Anemia, Blood Clots, Easy bleeding, Easy bruising, Swollen glands Past Medical History - SOCIAL HISTORY Smoking Status: Former smoker Alcohol Use: None Drug Use: None - RESPIRATORY Hx Respiratory Disorders: Yes Hx Asthma: Yes (regular, and occupational) Hx Bronchitis: Yes Hx COPD: Yes (emphysema) Hx Pneumonia: Yes - CARDIOVASCULAR Hx Cardio Disorders: Yes Hx Cardiac Cath: Yes (2010) Hx Chest Pain: Yes Hx Hypertension: Yes Hx Irregular Heartbeat: Yes Comment:: hyperlipidemia, 1 stent placement. - NEURO Hx Neuro Disorders: No Comment:: blurry vision with this episode of CP and before card cath - GI Hx GI Disorders: Yes Hx Reflux: Yes - Hx Genitourinary Disorders: Yes Hx Kidney Stones: Yes Hx Prostate Problems: Yes Comment:: Infection Resolved Apr 2015 - ENDOCRINE Hx Endocrine Disorders: No Hx Diabetes: No Hx Thyroid Disease: No - MUSCULOSKELETAL Hx Musculoskeletal Disorders: Yes Hx Arthritis: Yes Hx Back Injury: Yes - PSYCH Hx Psych Problems: No - HEMATOLOGY/ONCOLOGY Hx Hematology/Oncology Disorders: No Hx Blood Transfusions: No Family Medical History Any Significant Family History?: Yes Hx Cancer: Mother Hx Depression: Mother Hx Diabetes: Father, Mother Hx Heart Disease: Father, Mother Physical Exam - General General Appearance: Alert, Oriented x3, Cooperative, No acute distress - Head Head exam: Normal inspection - Eye Eye exam: Normal appearance, PERRL Pupils: Normal accommodation - ENT ENT exam: Normal exam, Mucous membranes moist, Normal external ear exam, Normal orophraynx Ear exam: Normal external inspection. negative: External canal tenderness Nasal Exam: Normal inspection. negative: Discharge, Sinus tenderness Mouth exam: Normal external inspection, Tongue normal Teeth exam: Normal inspection. negative: Dental caries Throat exam: Normal inspection. negative: Tonsillar erythema, Tonsillar exudate - Neck Neck exam: Normal inspection, Full ROM. negative: Tenderness - Respiratory Respiratory exam: Normal lung sounds bilaterally. negative: Respiratory distress - Cardiovascular Cardiovascular Exam: Regular rate, Normal rhythm, Normal heart sounds - GI/Abdominal GI/Abdominal exam: Soft, Normal bowel sounds. negative: Tenderness - Rectal Rectal exam: Deferred - exam: Deferred - Extremities Extremities exam: Normal inspection, Full ROM, Normal capillary refill. negative: Tenderness - Back Back exam: Reports: Normal inspection, Full ROM. Denies: Muscle spasm, Rash noted, Tenderness - Neurological Neurological exam: Alert, CN II-XII intact, Normal gait, Oriented X3 - Psychiatric Psychiatric exam: Normal affect, Normal mood - Skin Skin exam: Dry, Intact, Normal color, Warm Course Vital Signs 02/10/19 10:33 Temperature 98.7 F Pulse Rate 71 Respiratory 18 Rate Blood Pressure 132/79 Pulse Ox 96 - Reevaluation(s) Reevaluation #1: 02/10/19 15:07 pt has had no cp. 2 neg troponins Medical Decision Making - Lab Data Result diagrams: 02/10/19 11:00 02/10/19 11:00 Lab Results 02/10/19 Range/Units 11:00 WBC 7.0 (4.2-12.2) K/uL RBC 4.95 (4.40-5.70) M/uL Hgb 15.0 (14.0-18.0) gm/dl Hct 44.9 (42.0-52.0) % MCV 90.7 (81-97) fl MCH 30.3 (27-33) pg MCHC 33.4 (32-36) g/dl RDW 13.3 (11.5-14.5) % Plt Count 322 (130-400) K/uL MPV 9.8 (7.4-10.4) fl Gran % 58.2 (47-80) % Lymphocytes % 30.8 (16-45) % Monocytes % 7.7 (0-9) % Eosinophils % 2.7 (0-6) % Basophils % 0.6 (0-6) % Absolute Neutrophils 4.09 Disposition Disposition: Discharge Clinical Impression: Palpitations Disposition: Home, Self-Care Condition: (1) Good Instructions: Heart Palpitations (ED) Additional Instructions: follow up with link trainer operator. return sooner if worse. Forms: Patient Portal Access Quality - Quality Measures Quality Measures: N/A - Blood Pressure Screening Does Patient Have Any of the Following: No Blood Pressure Classification: Pre-Hypertensive BP Reading Systolic Measurement: 132 Diastolic Measurement: 79 Screening for High Blood Pressure: < Pre-Hypertensive BP, F/U Documented > [G8950] Pre-Hypertensive Follow-up Interventions: Follow-up with rescreen every year.
[2019-02-10 11:41] LABS: BLOOD UREA NITROGEN 21 mg/dL (6-20); EST GLOMERULAR FILTRATION RATE > 60 mL/min
[2019-02-10 11:43] LABS: GLUCOSE,RANDOM 113 mg/dL (74-109)
[2019-02-10 11:46] LABS: CREATINE PHOSPHOKINASE 101 U/L (39-308)
[2019-02-10 11:48] LABS: CKMB 1.9 ng/mL (<6.73)
--- NOTE | 2019-02-11 13:28 | RADIOLOGY REPORT ---
EXAM: CHEST, TWO VIEWS HISTORY: PALPITATIONS. TECHNIQUE: Upright PA and lateral views of the chest were obtained. Comparison: Two view chest radiographic examination dated 07/13/06. FINDINGS: The heart is not enlarged and the pulmonary vasculature is nondilated. The thoracic aorta is mildly tortuous and atherosclerotic. The lungs and pleural spaces appear clear. There is reversal of the normal thoracic kyphosis redemonstrated. Anterior plate and screw fusion of the lower cervical spine is suggested, incompletely imaged. IMPRESSION: NO RADIOGRAPHIC EVIDENCE OF ACUTE CARDIOPULMONARY DISEASE. JOB NUMBER: [id number] [facility]
== END 2019-02-10 15:24 | disposition home or self-care (01) ==
LOC: ER 10:27
DX: R00.2 Palpitations (principal); I10 Essential (primary) hypertension; J44.9 Chronic obstructive pulmonary disease, unspecified; Z87.891 Personal history of nicotine dependence
CPT/HCPCS: 71046; 80048; 82550; 82553; 84443; 84484; 85025; 85379; 93005; 93010; 99284